=== PATIENT | female | born 1950 | race Caucasian/White ===

== ENCOUNTER 2016-06-23 13:22 | Emergency (ER) | payer MEDICARE, MEDICAID ==
--- NOTE | 2016-06-23 14:07 | REP ---
LEFT ANKLE: Four views. HISTORY: Trauma. FINDINGS: Four views of the left ankle show plantar calcaneal spurring. An old accessory ossicle is seen adjacent to the medial malleolus unchanged from the February 20, 2016 prior study. Ankle mortise is intact. No fractures seen. IMPRESSION: No fracture noted. No change from February 20, 2016. Plantar heel spur. Old accessory ossicle at the medial malleolus. Signed by Hernan Griggs MD 06/23/2016 02:30 P
--- NOTE | 2016-06-23 14:08 | REP ---
SOFT-TISSUE NECK X-RAY: Three views. HISTORY: Foreign body Comparison cervical spine radiographs November 09, 2006. FINDINGS: A ventriculoperitoneal shunt catheter is seen. There is degenerative disc disease at C4-5 C5-6 and C6-7 radiographically more pronounced than on the 2007 prior study. Epiglottis and aryepiglottic folds are normal in appearance. Retropharyngeal soft tissues are not swollen. No opaque foreign body is seen. The glottic and subglottic airway is unremarkable. IMPRESSION: Ventriculoperitoneal shunt catheter noted. No evidence of opaque foreign body. Degenerative disc disease in the cervical spine. Signed by Hernan Griggs MD 06/23/2016 02:30 P
--- NOTE | 2016-06-23 15:14 | EDDOCDS ---
Nurse's Notes [facility] Name: Lina Michaels Age: 65 yrs Sex: Female : 1950 Arrival Date: 06/23/2016 Time: 13:22 Bed I2 / M2 Private MD: Diana Crocker Diagnosis: Sprain of ankle-Left;Calcaneal spur, left foot;Superficial foreign body of throat-Choked on Huertas;Other specified arthritis, unspecified site-Degenerative Disc Disease of C-spine on soft tissue of neck x-ray Presentation: 06/23 13:25 Presenting complaint: EMS states: C resident on a home visit. Family states that she jo3 choked on a piece of huertas approximately 20 minutes prior to EMS arrival . EMS cleared pt on scene but [facility] wanted her transported. Adult Sepsis Screening: The patient does not have new or worsening altered mentation. Suicide/Homicide risk assessment- the patient denies having any suicidal and/or homicidal ideations and does not present with any other emotional, behavioral or mental health complaints. 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 Transition of care: patient was not received from another setting of care. 13:25 Acuity: CARLOS Level 4 jo3 13:25 Method Of Arrival: Ambulance jo3 13:25 Adult Sepsis Screening: Systolic blood pressure is greater than 100. Patient has a jo3 qSOFA score of 0- Negative Sepsis Screen. Triage Assessment: 13:35 General: Appears in no apparent distress, comfortable, Behavior is appropriate for age, jo3 cooperative, pleasant. General: Pt states that she does ot have any throat discomfort . Neurological: Level of Consciousness is awake, alert, Oriented to person. Cardiovascular: No deficits noted. Respiratory: Airway is patent Respiratory effort is even, unlabored, Breath sounds are clear bilaterally. Derm: Skin is pink, warm & dry. Historical: - Allergies: no known allergies; - Home Meds: 1. bupropion HCl 300 mg Oral Tb24 1 tab once daily 2. Calcium + Vitamin D 600 mg calcium- 200 unit Oral tab 3. Claritin 10 mg Oral tab 4. Colace 100 mg oral cap 1 cap once daily 5. Lasix 20 mg Oral tab 1 tab once daily 6. multivitamin Oral cap 7. Prozac 20 mg Oral cap 3 caps once daily 8. Risperdal 3 mg Oral tab 1 tab 2 times per day 9. omeprazole 20 mg oral TbEC 20 mg daily 10. naproxen 500 mg Oral tab 1 tab 2 times per day - PMHx: Diverticulitis; dysphagia; GERD; intellectual disabilities; Depression; - PSHx: Mastectomy- Left; - Social history: Smoking status: Patient states was never smoker of tobacco. No barriers to communication noted, The patient speaks fluent Ukrainian, Speaks appropriately for age. - Family history: Not pertinent. - : The pt / caregiver states he / she is not on anticoagulants. Home medication list is obtained from the facility JUL. - Exposure Risk Screening:: None identified. Screenin:11 Screening information is obtained from residence staff. Screening information is jo3 obtained from the patient. Fall risk: No risks identified. Assistance ADL's: Requires assistance with meal preparation, this assistance is provided by residence staff, bathing, assistance is provided by residence staff, medication administration, assistance is provided by residence staff. Abuse/DV Screen: The patient / caregiver reports he/she is: not in a situation that causes fear, pain or injury. Nutritional screening: No deficits noted. Advance Directives: There is no active DNR order. home support is adequate. Assessment: 13:25 General: see triage assessment . jo3 14:20 General: Appears in no apparent distress, comfortable, Behavior is appropriate for age, jo3 cooperative. General: Awaiting results at this time. Aware of plan of care . Neurological: Level of Consciousness is awake, alert, Oriented to person. Respiratory: Airway is patent Respiratory effort is even, unlabored. Derm: Skin is pink, warm & dry. 15:11 General: Appears in no apparent distress, comfortable, Behavior is appropriate for age, jo3 cooperative, pleasant. Neurological: No deficits noted. Level of Consciousness is awake, alert, Oriented to person. Respiratory: Airway is patent Respiratory effort is even, unlabored. Derm: Skin is pink, warm & dry. Vital Signs: 13:27 BP 158 / 71; Pulse 86; Resp 18; Temp 97.8; Pulse Ox 96% ; jam1 14:55 Weight 64 kg; Height 5 ft. 6 in. (167.64 cm); jo3 14:58 BP 134 / 69; Pulse 70; Resp 18; Temp 98.0; Pulse Ox 96% ; jam1 14:55 Body Mass Index 22.77 (64.00 kg, 167.64 cm) jo3 Vitals: 14:55 Log In Time N/A - ambulance arrival. jo3 ED Course: 13:23 Patient visited by Shira Marie PCA. ar3 13:23 Diana Crocker is Private Physician. ar3 13:23 Patient moved to Waiting ar3 13:23 Patient moved to I2 / M2 ar3 13:25 [facility] ef1 13:25 Vania Montoya MD is Attending Physician. ef1 13:27 Triage Initiated jo3 13:31 Patient visited by Marlin Arrington PA-C. ef1 13:31 Patient visited by Irene Downey RN. jo3 13:36 Patient visited by Irene Downey RN. jo3 14:17 Patient visited by Marlin Arrington PA-C. ef1 14:18 [place] Payment Agreement was scanned into [employer] and attached to record. mm15 14:43 Ankle, Complete Returned. EDMS 14:43 Soft Tissue Neck Returned. EDMS 14:53 Patient visited by Marlin Arrington PA-C. ef1 14:56 Diana Crocker is Referral Physician. ef1 14:[facility]. ef1 15:11 The patient / caregiver is instructed regarding the plan of care and ED course. jo3 15:11 No IV's were initiated during this patient's visit. No procedures done that require jo3 assistance. 15:13 Air stirrup applied to left ankle Patient with positive distal sensation and brisk jo3 distal capillary refill after application. Order Results: Radiology Order: Soft Tissue Neck Test: Soft Tissue Neck REASON FOR EXAMINATION: Foreign Body; SOFT-TISSUE NECK X-RAY: Three views.; ; HISTORY: Foreign body; ; Comparison cervical spine radiographs November 09, 2006.; ; FINDINGS: A ventriculoperitoneal shunt catheter is seen. There is degenerative; disc disease at C4-5 C5-6 and C6-7 radiographically more pronounced than on the2006 prior study. Epiglottis and aryepiglottic folds are normal in appearance.; Retropharyngeal soft tissues are not swollen. No opaque foreign body is seen.; The glottic and subglottic airway is unremarkable.; ; IMPRESSION:; ; Ventriculoperitoneal shunt catheter noted. No evidence of opaque foreign body.; Degenerative disc disease in the cervical spine.; ; ; Signed by; Hernan Griggs MD 06/23/2016 02:30 P; Radiology Order: Ankle, Complete Test: Ankle, Complete REASON FOR EXAMINATION: Trauma; LEFT ANKLE: Four views.; ; HISTORY: Trauma.; ; FINDINGS: Four views of the left ankle show plantar calcaneal spurring. An old; accessory ossicle is seen adjacent to the medial malleolus unchanged from the; February 20, 2016 prior study. Ankle mortise is intact. No fractures seen.; ; IMPRESSION:; ; No fracture noted. No change from February 20, 2016. Plantar heel spur. Old; accessory ossicle at the medial malleolus.; ; ; Signed by; Hernan Griggs MD 06/23/2016 02:30 P; Outcome: 14:56 Discharge ordered by Provider. ef1 15:11 Discharge Assessment: Patient awake, alert and oriented x 3. No cognitive and/or jo3 functional deficits noted. Patient verbalized understanding of disposition instructions. patient administered narcotics - no. The following High Risk Discharge criteria are identified: None. Discharged to [facility]. Condition: good. No special radiology studies were completed. Property sent home with patient. 15:13 Patient left the ED. jo3 Signatures: Dispatcher [employer] EDMS Gege Reagan, DIRECTOR MULTIMEDIA DIRECTOR MULTIMEDIA jam1 Irene Downey RN RN jo3 Marlin Arrington, PADeondreC PA-C ef1 Shira Marie, DIRECTOR MULTIMEDIA DIRECTOR MULTIMEDIA ar3 Soledad Parsons RN RN pml McGrath, Marlynn mm15 Corrections: (The following items were deleted from the chart) 14:55 13:29 Allergies: no known allergies; jo3 pml 14:55 13:29 Home Meds: trazodone 50 mg Oral tab nightly; jo3 pml 14:55 13:29 Home Meds: Zantac 150 mg Oral tab 1 tab 2 times per day; jo3 pml MTDD
--- NOTE | 2016-06-23 15:14 | EDDOCDS ---
Physician Documentation [facility] Name: Lina Michaels Age: 65 yrs Sex: Female : 1950 Arrival Date: 06/23/2016 Time: 13:22 Bed I2 / M2 Private MD: Diana Crocker Disposition: 06/23/16 14:56 Discharged to Home/Self Care. Impression: Sprain of ankle - Left, Calcaneal spur, left foot, Superficial foreign body of throat - Choked on Huertas, Other specified arthritis, unspecified site - Degenerative Disc Disease of C-spine on soft tissue of neck x-ray. - Condition is Stable. - Discharge Instructions: Heel Spur, Ankle Sprain, [id number], Swallowed Foreign Body, Adult, [id number], Degenerative Disk Disease. - Medication Reconciliation, Local Pharmacy Hours form. - Follow up: Diana Crocker; When: 1 - 2 days; Reason: Recheck today's complaints, Continuance of care. Follow up: Emergency Department; Reason: Worsening of conditions. Follow up: [facility]; When: Call to arrange an appointment; Reason: Further diagnostic work-up, Recheck today's complaints, Continuance of care. - Problem is new. - Symptoms have improved. Historical: - Allergies: no known allergies; - Home Meds: 1. bupropion HCl 300 mg Oral Tb24 1 tab once daily 2. Calcium + Vitamin D 600 mg calcium- 200 unit Oral tab 3. Claritin 10 mg Oral tab 4. Colace 100 mg oral cap 1 cap once daily 5. Lasix 20 mg Oral tab 1 tab once daily 6. multivitamin Oral cap 7. Prozac 20 mg Oral cap 3 caps once daily 8. Risperdal 3 mg Oral tab 1 tab 2 times per day 9. omeprazole 20 mg oral TbEC 20 mg daily 10. naproxen 500 mg Oral tab 1 tab 2 times per day - PMHx: Diverticulitis; dysphagia; GERD; intellectual disabilities; Depression; - PSHx: Mastectomy- Left; - Social history: Smoking status: Patient states was never smoker of tobacco. No barriers to communication noted, The patient speaks fluent Greenlandic, Speaks appropriately for age. - Family history: Not pertinent. - : The pt / caregiver states he / she is not on anticoagulants. Home medication list is obtained from the facility MAR. - Exposure Risk Screening:: None identified. Vital Signs: 06/23 13:27 BP 158 / 71; Pulse 86; Resp 18; Temp 97.8; Pulse Ox 96% ; jam1 14:55 Weight 64 kg / 141.1 lbs; Height 5 ft. 6 in. (167.64 cm); jo3 14:58 BP 134 / 69; Pulse 70; Resp 18; Temp 98.0; Pulse Ox 96% ; jam1 14:55 Body Mass Index 22.77 (64.00 kg, 167.64 cm) jo3 Procedures: 15:08 Fracture care/splinting: Splint applied to left lateral ankle using Air Cast, applied ef1 by nurse. Examined by me, post splint application: neurovascular intact, 2+ distal pulses palpable, brisk capillary refill noted, Patient tolerated well. MDM: 13:26 Soft Tissue Neck Ordered. EDMS 13:46 Ankle, Complete Ordered. EDMS 14:02 Financial registration complete. mm15 14:18 [facility] Payment Agreement was scanned into [employer] and attached to record. mm15 14:53 Apply Air Cast to Patient. ordered. ef1 14:58 Ice Pack ordered. ef1 Signatures: Dispatcher [employer] EDMS Irene Downey RN RN jo3 Marlin Arrington, EJ PAGAN ef1 Soledad Parsons RN RN pml McGrath, Marlynn mm15 The chart was reviewed and I authenticate all verbal orders and agree with the evaluation and treatment provided.Corrections: (The following items were deleted from the chart) 14:55 13:29 Allergies: no known allergies; jo3 pml 14:55 13:29 Home Meds: trazodone 50 mg Oral tab nightly; jo3 pml 14:55 13:29 Home Meds: Zantac 150 mg Oral tab 1 tab 2 times per day; jo3 pml Attachments: 14:18 [place] [place] Agreement mm15 MTDD
--- NOTE | 2016-06-25 16:14 | EDDOCDS ---
Physician Documentation [facility] Name: Lina Michaels Age: 65 yrs Sex: Female : 1950 Arrival Date: 06/23/2016 Time: 13:22 Bed I2 / M2 Private MD: Diana Crocker Disposition: 06/23/16 14:56 Discharged to Home/Self Care. Impression: Sprain of ankle - Left, Calcaneal spur, left foot, Superficial foreign body of throat - Choked on Huertas, Other specified arthritis, unspecified site - Degenerative Disc Disease of C-spine on soft tissue of neck x-ray. - Condition is Stable. - Discharge Instructions: Heel Spur, Ankle Sprain, [id number]-[id number], Swallowed Foreign Body, Adult, Lopy-ey-Naeo, Degenerative Disk Disease. - Medication Reconciliation, Local Pharmacy Hours form. - Follow up: Diana Crocker; When: 1 - 2 days; Reason: Recheck today's complaints, Continuance of care. Follow up: Emergency Department; Reason: Worsening of conditions. Follow up: [facility]; When: Call to arrange an appointment; Reason: Further diagnostic work-up, Recheck today's complaints, Continuance of care. - Problem is new. - Symptoms have improved. Historical: - Allergies: no known allergies; - Home Meds: 1. bupropion HCl 300 mg Oral Tb24 1 tab once daily 2. Calcium + Vitamin D 600 mg calcium- 200 unit Oral tab 3. Claritin 10 mg Oral tab 4. Colace 100 mg oral cap 1 cap once daily 5. Lasix 20 mg Oral tab 1 tab once daily 6. multivitamin Oral cap 7. Prozac 20 mg Oral cap 3 caps once daily 8. Risperdal 3 mg Oral tab 1 tab 2 times per day 9. omeprazole 20 mg oral TbEC 20 mg daily 10. naproxen 500 mg Oral tab 1 tab 2 times per day - PMHx: Diverticulitis; dysphagia; GERD; intellectual disabilities; Depression; - PSHx: Mastectomy- Left; - Social history: Smoking status: Patient states was never smoker of tobacco. No barriers to communication noted, The patient speaks fluent Divehi, Speaks appropriately for age. - Family history: Not pertinent. - : The pt / caregiver states he / she is not on anticoagulants. Home medication list is obtained from the facility MAR. - Exposure Risk Screening:: None identified. Vital Signs: 06/23 13:27 BP 158 / 71; Pulse 86; Resp 18; Temp 97.8; Pulse Ox 96% ; jam1 14:55 Weight 64 kg / 141.1 lbs; Height 5 ft. 6 in. (167.64 cm); jo3 14:58 BP 134 / 69; Pulse 70; Resp 18; Temp 98.0; Pulse Ox 96% ; jam1 14:55 Body Mass Index 22.77 (64.00 kg, 167.64 cm) jo3 Procedures: 15:08 Fracture care/splinting: Splint applied to left lateral ankle using Air Cast, applied ef1 by nurse. Examined by me, post splint application: neurovascular intact, 2+ distal pulses palpable, brisk capillary refill noted, Patient tolerated well. MDM: 13:26 Soft Tissue Neck Ordered. EDMS 13:46 Ankle, Complete Ordered. EDMS 14:02 Financial registration complete. mm15 14:18 [place] [place] Payment Agreement was scanned into [employer] and attached to record. mm15 14:53 Apply Air Cast to Patient. ordered. ef1 14:58 Ice Pack ordered. ef1 22:01 T-Sheet-- Draft Copy was scanned into [employer] and attached to record. klr 06/24 10:41 Radiology Report was scanned into [employer] and attached to record. gb Signatures: Dispatcher [employer] EDIN Marnie Addison, Reg Reg Irene Hinds RN RN jo3 Marlin Arrington, PA-C PA-C ef1 Soledad Parsons RN RN pml McGrath, Marlynn mm15 Anna Calderon klmaribeth The chart was reviewed and I authenticate all verbal orders and agree with the evaluation and treatment provided.Corrections: (The following items were deleted from the chart) 06/23 14:55 13:29 Allergies: no known allergies; jo3 pml 14:55 13:29 Home Meds: trazodone 50 mg Oral tab nightly; jo3 pml 14:55 13:29 Home Meds: Zantac 150 mg Oral tab 1 tab 2 times per day; jo3 pml Attachments: 14:18 [facility] [place] Payment Agreement mm15 22:01 T-Sheet-- Draft Copy klr Chart Complete MTDD
--- NOTE | 2016-06-25 16:14 | EDDOCDS ---
Nurse's Notes [facility] Name: Lina Michaels Age: 65 yrs Sex: Female : 1950 Arrival Date: 06/23/2016 Time: 13:22 Bed I2 / M2 Private MD: Diana Crocker Diagnosis: Sprain of ankle-Left;Calcaneal spur, left foot;Superficial foreign body of throat-Choked on Huertas;Other specified arthritis, unspecified site-Degenerative Disc Disease of C-spine on soft tissue of neck x-ray Presentation: 06/23 13:25 Presenting complaint: EMS states: C resident on a home visit. Family states that she jo3 choked on a piece of huertas approximately 20 minutes prior to EMS arrival . EMS cleared pt on scene but [facility] wanted her transported. Adult Sepsis Screening: The patient does not have new or worsening altered mentation. Suicide/Homicide risk assessment- the patient denies having any suicidal and/or homicidal ideations and does not present with any other emotional, behavioral or mental health complaints. Status: Patient is not a client service supervisor or dependent. Transition of care: patient was not received from another setting of care. 13:25 Acuity: CARLOS Level 4 jo3 13:25 Method Of Arrival: Ambulance jo3 13:25 Adult Sepsis Screening: Systolic blood pressure is greater than 100. Patient has a jo3 qSOFA score of 0- Negative Sepsis Screen. Triage Assessment: 13:35 General: Appears in no apparent distress, comfortable, Behavior is appropriate for age, jo3 cooperative, pleasant. General: Pt states that she does ot have any throat discomfort . Neurological: Level of Consciousness is awake, alert, Oriented to person. Cardiovascular: No deficits noted. Respiratory: Airway is patent Respiratory effort is even, unlabored, Breath sounds are clear bilaterally. Derm: Skin is pink, warm & dry. Historical: - Allergies: no known allergies; - Home Meds: 1. bupropion HCl 300 mg Oral Tb24 1 tab once daily 2. Calcium + Vitamin D 600 mg calcium- 200 unit Oral tab 3. Claritin 10 mg Oral tab 4. Colace 100 mg oral cap 1 cap once daily 5. Lasix 20 mg Oral tab 1 tab once daily 6. multivitamin Oral cap 7. Prozac 20 mg Oral cap 3 caps once daily 8. Risperdal 3 mg Oral tab 1 tab 2 times per day 9. omeprazole 20 mg oral TbEC 20 mg daily 10. naproxen 500 mg Oral tab 1 tab 2 times per day - PMHx: Diverticulitis; dysphagia; GERD; intellectual disabilities; Depression; - PSHx: Mastectomy- Left; - Social history: Smoking status: Patient states was never smoker of tobacco. No barriers to communication noted, The patient speaks fluent Pashto, Speaks appropriately for age. - Family history: Not pertinent. - : The pt / caregiver states he / she is not on anticoagulants. Home medication list is obtained from the facility JUL. - Exposure Risk Screening:: None identified. Screenin:11 Screening information is obtained from residence staff. Screening information is jo3 obtained from the patient. Fall risk: No risks identified. Assistance ADL's: Requires assistance with meal preparation, this assistance is provided by residence staff, bathing, assistance is provided by residence staff, medication administration, assistance is provided by residence staff. Abuse/DV Screen: The patient / caregiver reports he/she is: not in a situation that causes fear, pain or injury. Nutritional screening: No deficits noted. Advance Directives: There is no active DNR order. home support is adequate. Assessment: 13:25 General: see triage assessment . jo3 14:20 General: Appears in no apparent distress, comfortable, Behavior is appropriate for age, jo3 cooperative. General: Awaiting results at this time. Aware of plan of care . Neurological: Level of Consciousness is awake, alert, Oriented to person. Respiratory: Airway is patent Respiratory effort is even, unlabored. Derm: Skin is pink, warm & dry. 15:11 General: Appears in no apparent distress, comfortable, Behavior is appropriate for age, jo3 cooperative, pleasant. Neurological: No deficits noted. Level of Consciousness is awake, alert, Oriented to person. Respiratory: Airway is patent Respiratory effort is even, unlabored. Derm: Skin is pink, warm & dry. Vital Signs: 13:27 BP 158 / 71; Pulse 86; Resp 18; Temp 97.8; Pulse Ox 96% ; jam1 14:55 Weight 64 kg; Height 5 ft. 6 in. (167.64 cm); jo3 14:58 BP 134 / 69; Pulse 70; Resp 18; Temp 98.0; Pulse Ox 96% ; jam1 14:55 Body Mass Index 22.77 (64.00 kg, 167.64 cm) jo3 Vitals: 14:55 Log In Time N/A - ambulance arrival. jo3 ED Course: 13:23 Patient visited by Shira Marie PCA. ar3 13:23 Diana Crocker is Private Physician. ar3 13:23 Patient moved to Waiting ar3 13:23 Patient moved to I2 / M2 ar3 13:25 Marlin Arrington PA-C is [facility]. ef1 13:25 Vania Montoya MD is Attending Physician. ef1 13:27 Triage Initiated jo3 13:31 Patient visited by Marlin Arrington PA-C. ef1 13:31 Patient visited by Irene Downey,SHARMIN. jo3 13:36 Patient visited by Irene Downey RN. jo3 14:17 Patient visited by Marlin Arrington PA-C. ef1 14:18 [id number] Payment Agreement was scanned into [employer] and attached to record. mm15 14:43 Ankle, Complete Returned. EDMS 14:43 Soft Tissue Neck Returned. EDMS 14:53 Patient visited by Marlin Arrington PA-C. ef1 14:56 Diana Crocker is Referral Physician. ef1 14:56 [facility]. ef1 15:11 The patient / caregiver is instructed regarding the plan of care and ED course. jo3 15:11 No IV's were initiated during this patient's visit. No procedures done that require jo3 assistance. 15:13 Air stirrup applied to left ankle Patient with positive distal sensation and brisk jo3 distal capillary refill after application. 22:01 T-Sheet-- Draft Copy was scanned into [employer] and attached to record. klr 06/24 10:41 Radiology Report was scanned into [employer] and attached to record. gb Order Results: Radiology Order: Soft Tissue Neck Test: Soft Tissue Neck REASON FOR EXAMINATION: Foreign Body; SOFT-TISSUE NECK X-RAY: Three views.; ; HISTORY: Foreign body; ; Comparison cervical spine radiographs November 09, 2006.; ; FINDINGS: A ventriculoperitoneal shunt catheter is seen. There is degenerative; disc disease at C4-5 C5-6 and C6-7 radiographically more pronounced than on the2006 prior study. Epiglottis and aryepiglottic folds are normal in appearance.; Retropharyngeal soft tissues are not swollen. No opaque foreign body is seen.; The glottic and subglottic airway is unremarkable.; ; IMPRESSION:; ; Ventriculoperitoneal shunt catheter noted. No evidence of opaque foreign body.; Degenerative disc disease in the cervical spine.; ; ; Signed by; Hernan Griggs MD 06/23/2016 02:30 P; Radiology Order: Ankle, Complete Test: Ankle, Complete REASON FOR EXAMINATION: Trauma; LEFT ANKLE: Four views.; ; HISTORY: Trauma.; ; FINDINGS: Four views of the left ankle show plantar calcaneal spurring. An old; accessory ossicle is seen adjacent to the medial malleolus unchanged from the; February 20, 2016 prior study. Ankle mortise is intact. No fractures seen.; ; IMPRESSION:; ; No fracture noted. No change from February 20, 2016. Plantar heel spur. Old; accessory ossicle at the medial malleolus.; ; ; Signed by; Hernan Griggs MD 06/23/2016 02:30 P; Outcome: 06/23 14:56 Discharge ordered by Provider. ef1 15:11 Discharge Assessment: Patient awake, alert and oriented x 3. No cognitive and/or jo3 functional deficits noted. Patient verbalized understanding of disposition instructions. patient administered narcotics - no. The following High Risk Discharge criteria are identified: None. Discharged to [facility]. Condition: good. No special radiology studies were completed. Property sent home with patient. 15:13 Patient left the ED. jo3 Signatures: Dispatcher [employer] EDMS Gege Reagan, LMFT LMFT tomas1 Marnie Addison, Reg Reg Irene Hinds RN RN jo3 Marlin Arrington, PA-C PA-C ef1 Shira Marie, LMFT LMFT ar3 Soledad Parsons RN RN Luiz Li mm15 Anna Calderon Corrections: (The following items were deleted from the chart) 14:55 13:29 Allergies: no known allergies; jo3 pml 14:55 13:29 Home Meds: trazodone 50 mg Oral tab nightly; jo3 pml 14:55 13:29 Home Meds: Zantac 150 mg Oral tab 1 tab 2 times per day; jo3 pml Chart Complete MTDD
--- NOTE | 2016-06-25 16:14 | EDDOCDS ---
Physician Documentation [facility] Name: Lina Michaels Age: 65 yrs Sex: Female : 1950 Arrival Date: 06/23/2016 Time: 13:22 Bed I2 / M2 Private MD: Diana Crocker Disposition: 06/23/16 14:56 Discharged to Home/Self Care. Impression: Sprain of ankle - Left, Calcaneal spur, left foot, Superficial foreign body of throat - Choked on Huertas, Other specified arthritis, unspecified site - Degenerative Disc Disease of C-spine on soft tissue of neck x-ray. - Condition is Stable. - Discharge Instructions: Heel Spur, Ankle Sprain, [id number], Swallowed Foreign Body, Adult, Acfp-to-Bbfz, Degenerative Disk Disease. - Medication Reconciliation, Local Pharmacy Hours form. - Follow up: Diana Crocker; When: 1 - 2 days; Reason: Recheck today's complaints, Continuance of care. Follow up: Emergency Department; Reason: Worsening of conditions. Follow up: [facility]; When: Call to arrange an appointment; Reason: Further diagnostic work-up, Recheck today's complaints, Continuance of care. - Problem is new. - Symptoms have improved. Historical: - Allergies: no known allergies; - Home Meds: 1. bupropion HCl 300 mg Oral Tb24 1 tab once daily 2. Calcium + Vitamin D 600 mg calcium- 200 unit Oral tab 3. Claritin 10 mg Oral tab 4. Colace 100 mg oral cap 1 cap once daily 5. Lasix 20 mg Oral tab 1 tab once daily 6. multivitamin Oral cap 7. Prozac 20 mg Oral cap 3 caps once daily 8. Risperdal 3 mg Oral tab 1 tab 2 times per day 9. omeprazole 20 mg oral TbEC 20 mg daily 10. naproxen 500 mg Oral tab 1 tab 2 times per day - PMHx: Diverticulitis; dysphagia; GERD; intellectual disabilities; Depression; - PSHx: Mastectomy- Left; - Social history: Smoking status: Patient states was never smoker of tobacco. No barriers to communication noted, The patient speaks fluent Hebrew, Speaks appropriately for age. - Family history: Not pertinent. - : The pt / caregiver states he / she is not on anticoagulants. Home medication list is obtained from the facility MAR. - Exposure Risk Screening:: None identified. Vital Signs: 06/23 13:27 BP 158 / 71; Pulse 86; Resp 18; Temp 97.8; Pulse Ox 96% ; jam1 14:55 Weight 64 kg / 141.1 lbs; Height 5 ft. 6 in. (167.64 cm); jo3 14:58 BP 134 / 69; Pulse 70; Resp 18; Temp 98.0; Pulse Ox 96% ; jam1 14:55 Body Mass Index 22.77 (64.00 kg, 167.64 cm) jo3 Procedures: 15:08 Fracture care/splinting: Splint applied to left lateral ankle using Air Cast, applied ef1 by nurse. Examined by me, post splint application: neurovascular intact, 2+ distal pulses palpable, brisk capillary refill noted, Patient tolerated well. MDM: 13:26 Soft Tissue Neck Ordered. EDMS 13:46 Ankle, Complete Ordered. EDMS 14:02 Financial registration complete. mm15 14:18 [facility] [place] Agreement was scanned into [employer] and attached to record. mm15 14:53 Apply Air Cast to Patient. ordered. ef1 14:58 Ice Pack ordered. ef1 22:01 T-Sheet-- Draft Copy was scanned into [employer] and attached to record. klr 06/24 10:41 Radiology Report was scanned into [employer] and attached to record. gb Signatures: Dispatcher [employer] EDHI Marnie Addison, Reg Reg Irene Hinds RN RN jo3 Marlin Arrington, PA-C PA-C ef1 Soledad Parsons RN RN pml McGrath, Marlynn mm15 Anna Calderon [email or web address] The chart was reviewed and I authenticate all verbal orders and agree with the evaluation and treatment provided.Corrections: (The following items were deleted from the chart) 06/23 14:55 13:29 Allergies: no known allergies; jo3 pml 14:55 13:29 Home Meds: trazodone 50 mg Oral tab nightly; jo3 pml 14:55 13:29 Home Meds: Zantac 150 mg Oral tab 1 tab 2 times per day; jo3 pml Attachments: 14:18 [facility] Payment Agreement mm15 22:01 T-Sheet-- Draft Copy klr Chart Complete MTDD
== END 2016-06-23 15:13 | disposition home or self-care (01) ==
LOC: M ED 13:22
DX: S93.402A Sprain of unspecified ligament of left ankle, initial encounter (principal); T18.108A Unspecified foreign body in esophagus causing other injury, initial encounter; X58.XXXA Exposure to other specified factors, initial encounter; Y92.019 Unspecified place in single-family (private) house as the place of occurrence of the external cause; Y93.89 Activity, other specified; Y99.8 Other external cause status; M77.32 Calcaneal spur, left foot; M50.321 Other cervical disc degeneration at C4-C5 level; M50.322 Other cervical disc degeneration at C5-C6 level; M50.323 Other cervical disc degeneration at C6-C7 level; R07.0 Pain in throat; F79 Unspecified intellectual disabilities; K57.80 Diverticulitis of intestine, part unspecified, with perforation and abscess without bleeding; K21.9 Gastro-esophageal reflux disease without esophagitis; F32.9 Major depressive disorder, single episode, unspecified; R13.10 Dysphagia, unspecified; Z90.12 Acquired absence of left breast and nipple; Z79.1 Long term (current) use of non-steroidal anti-inflammatories (NSAID); Z79.899 Other long term (current) drug therapy

== ENCOUNTER → 2016-08-01 | Outpatient (CLI) | payer MEDICARE, MEDICAID ==
--- NOTE | 2016-08-01 11:15 | REP ---
CT BRAIN WITHOUT CONTRAST: 08/01/2016 COMPARISON: 01/08/2016, 03/07/2015. CLINICAL HISTORY: Hydrocephalus. Status post MIRROR DEPARTMENT SUPERVISOR shunt placement. FINDINGS: Soft tissue and bone windows reviewed again show ventriculomegaly with bifrontal diameter about 46 mm between the lateral margins of the frontal horns at the same measured level on the two comparison studies, unchanged. There is a right frontal ventriculostomy drain with its tip extending to the midline of the frontal horn of the right lateral ventricle. All of this appearance is stable. Third ventricle shows a transverse diameter 10 mm, but with parallel soriano and unchanged. Fourth ventricle mildly prominent as well, stable. Basal ganglia are symmetric. Celestin-white junction differentiation well maintained. No midline shift. No intra- or extra-axial hemorrhage, mass, or extra-axial fluid collection. The cerebellum and brainstem unchanged with hossein cisterna magna appearance, stable. Basal cisterns intact. Mastoids and visualized sinuses clear. Skull base and calvarium show no fracture, focal lesion, or interval change. IMPRESSION: 1. Hydrocephalus with right frontal ventriculoperitoneal drain with the shunt catheter abutting the medial wall of the right lateral ventricle and the frontal horn and unchanged. The transverse diameter of the frontal horns bilaterally is 46 mm, unchanged from two previous comparisons. There is mild cerebellar atrophy but no extra-axial fluid collection, hemorrhage, mass or acute infarct. Stable examination. Signed by Rehan Brooke MD 08/01/2016 06:37 P
== END ==
LOC: M RAD 10:23
PROVIDERS: ATTEND Neurological Surgery
DX: G91.9 Hydrocephalus, unspecified (principal); Z98.2 Presence of cerebrospinal fluid drainage device

== ENCOUNTER → 2016-12-19 | Outpatient (CLI) | payer MEDICARE, MEDICAID ==
--- NOTE | 2016-12-19 16:52 | REPMRS ---
Patient History The patient states she had a clinical breast exam in 01/03 Patient is postmenopausal, has history of cancer in the left breast at age 53, and is nulliparous. Malignant mastectomy of the left breast, 2005. Digital Woman Screen Mammo: December 19, 2016 - Exam #: [id number] Bilateral CC and MLO view(s) were taken. Technologist: Kaci Kingston, Technologist Prior study comparison: November 29, 2015, digital woman screen mammo performed at [facility]. October 28, 2014, digital woman screen mammo performed at [facility]. FINDINGS: There are scattered fibroglandular densities. There has been no change in the appearance of the right mammogram from the prior studies. There is a mild amount of residual fibroglandular tissue which is fairly symmetric. Prior left mastectomy. There is no interval development of dominant mass, architectural distortion, or clustered microcalcification suggestive of malignancy. There are scattered, small, benign calcifications of doubtful clinical significance. A CHAPLAIN RESIDENT shunt catheter overlies medial right breast as before. No significant changes when compared with prior studies. ASSESSMENT: BI-RADS/ACR category 2 mammogram. Benign finding(s). Recommendation Routine screening mammogram in 1 year (for women over age 40). This mammogram was interpreted with the aid of an FDA-approved computer-aided dectection system. A. Negative x-ray reports should not delay biopsy if a dominant or clinically suspicious mass is present. B. Four to eight percent of cancers are not identified by mammography. C. Adenosis and dense breast may obscure an underlying neoplasm. Electronically Signed By: Rehan Brooke MD 12/19/16 0154
== END ==
LOC: M WHC 14:15
PROVIDERS: ATTEND Nurse Practitioner Family
DX: Z01.419 Encounter for gynecological examination (general) (routine) without abnormal findings (principal); Z12.31 Encounter for screening mammogram for malignant neoplasm of breast; Z90.12 Acquired absence of left breast and nipple; Z78.0 Asymptomatic menopausal state; Z12.12 Encounter for screening for malignant neoplasm of rectum; Z85.3 Personal history of malignant neoplasm of breast; Z96.89 Presence of other specified functional implants
CPT/HCPCS: 82270; G0101; G0202

== ENCOUNTER → 2017-07-12 | Outpatient (REF) | payer MEDICARE, MEDICAID | LOC: M LAB REF 09:16 | DX: R30.0 Dysuria (principal) | CPT/HCPCS: 87186 ==

== ENCOUNTER → 2017-12-23 | Outpatient (CLI) | payer MEDICARE, MEDICAID | LOC: M WHC 12:52 | DX: Z12.31 Encounter for screening mammogram for malignant neoplasm of breast (principal) | CPT/HCPCS: 77067 ==

== ENCOUNTER → 2019-04-29 | Outpatient (CLI) | payer MEDICARE, MEDICAID ==
--- NOTE | 2019-04-29 10:59 | REP ---
UNILATERAL MAMMOGRAM RIGHT BREAST WITH 3D TOMOSYNTHESIS: HISTORY: Left breast cancer and mastectomy 2004. MLO and CC views of the right breast performed with 3D tomosynthesis. Comparison made with multiple prior exams, most recently 12/23/2017. Moderate scattered fibroglandular tissue is again seen in the right breast. No new mass, architectural distortion or clustered microcalcifications are seen. IMPRESSION: BIRADS 1: BI-RADS/ACR category 1 mammogram. Negative Mammogram. ACR 1 negative mammogram right breast in this patient status post left mastectomy. Suggest followup mammogram in 1 year. This mammogram was interpreted with the aid of an FDA-approved computer-aided detection system. The patient states she has not had a clinical breast exam in over a year. The patient letter being requested is M1.
== END ==
LOC: M WHC 08:14
PROVIDERS: ATTEND Family Medicine
DX: Z12.31 Encounter for screening mammogram for malignant neoplasm of breast (principal)

== ENCOUNTER → 2022-04-25 | Outpatient (REF) | payer MEDICARE, MEDICAID | LOC: M LAB REF 16:46 | PROVIDERS: ATTEND Physician Assistant | DX: R30.0 Dysuria (principal) ==

== ENCOUNTER 2023-01-25 10:47 | Day surgery (SDC) | payer MEDICARE, MEDICAID ==
[~2023-01-25] VITALS: Ht 167.6 cm; Wt 63.0 kg
[~2023-01-25 10:47] MED LIST: ATOR1TAB21 PO; BUPR150T12 PO; CALC-218 PO; CLAR10CA3 PO; DEBR6.5S4 AU; DONE10TA90 PO; ECOT81TA5 PO; FURO20TA2 PO; GOOD8.6T2 PO; NAPR500T6 PO; NS 1,000 ML IV ONE; PANT40TA29 PO; PROZ20CA11 PO; RISP-10 PO
[2023-01-25 12:17] VITALS: TEMP 98.9
[2023-01-25 13:10] VITALS: BP 132/76; O2SAT 94
== END 2023-01-25 13:10 | disposition home or self-care (01) ==
LOC: M SDC 10:47
PROVIDERS: ATTEND Surgery
DX: Z12.11 Encounter for screening for malignant neoplasm of colon (principal); D12.2 Benign neoplasm of ascending colon; Z85.3 Personal history of malignant neoplasm of breast

== ENCOUNTER 2023-09-25 12:21 | Inpatient (IN) | payer MEDICARE, MEDICAID ==
[~2023-09-25] VITALS: Ht 160 cm; Wt 67.7 kg
[~2023-09-25 12:21] MED LIST changes: -NS 1,000 ML IV ONE; -RISP-10 PO; +RISP3TAB77 PO
[2023-09-25] MEDS: LIDOCAINE 2% 5ML JELLY UROJET TOP ONE (13:10)
[2023-09-25 13:35] LABS: BASO % 0.2 % (0.0-1.0); EOS % 0.2 % (0.0-3.0); HEMATOCRIT 38.2 % (36.0-47.0); HEMOGLOBIN 11.7 g/dl (12.0-15.5); LYMPH # 1.1 10^3/uL (1.5-5.0); LYMPH % 12.3 % (24.0-44.0); MEAN CORPUSCULAR HEMOGLOBIN 27.3 pg (27.0-33.0); MEAN CORPUSCULAR HGB CONC 30.6 g/dl (32.0-36.5); MONO # 0.4 10^3/uL (0.0-0.8); MONO % 4.8 % (2.0-8.0); NEUTROPHILS # 7.5 10^3/uL (1.5-8.5); NEUTROPHILS % 82.3 % (36.0-66.0); PLATELET COUNT, AUTOMATED 308 10^3/uL (150-450); RED BLOOD COUNT 4.29 10^6/uL (4.00-5.40); WHITE BLOOD COUNT 9.2 10^3/uL (4.0-10.0)
[2023-09-25 13:53] LABS: VENOUS BASE EXCESS 2.4 (-2.0-2.0); VENOUS HCO3 28.7 MMOL/L (23.0-27.0); VENOUS O2 SATURATION 95.5 % (60.0-80.0); VENOUS PARTIAL PRESSURE CO2 51.5 mmHg (38.0-50.0); VENOUS PARTIAL PRESSURE O2 86.2 mmHg (30.0-50.0); VENOUS PH 7.364 UNITS (7.330-7.430); VENOUS STANDARD HCO3 26.6 MMOL/L; VENOUS TOTAL CO2 30.3 MMOL/L (24.0-28.0)
[2023-09-25 13:59] LABS: ALBUMIN 3.3 G/DL (3.2-5.2); ALKALINE PHOSPHATASE 116 U/L (46-116); ALT/SGPT 20 U/L (7.0-40); AST/SGOT 25 U/L (<34); BILIRUBIN,DIRECT < 0.1 MG/DL (<0.4); BILIRUBIN,TOTAL 0.3 MG/DL (0.3-1.2); BLOOD UREA NITROGEN 16 MG/DL (9-23); CALCIUM LEVEL 8.8 MG/DL (8.3-10.6); CARBON DIOXIDE LEVEL 28 MMOL/L (20-31); CHLORIDE LEVEL 104 MMOL/L (98-107); CREATININE FOR GFR 0.64 MG/DL (0.55-1.30); GLOMERULAR FILTRATION RATE > 60.0 (>39); GLUCOSE, FASTING 102 MG/DL (74-106); POTASSIUM SERUM 4.5 MMOL/L (3.5-5.1); SODIUM LEVEL 140 MMOL/L (136-145); TOTAL PROTEIN 6.9 G/DL (5.7-8.2)
[2023-09-25 14:02] LABS: THYROID STIMULATING HORMONE 1.801 uIU/ML (0.55-4.78)
[2023-09-25 14:13] LABS: CK-MB VALUE MASS < 1.0 NG/ML (<3.6)
[2023-09-25 14:18] LABS: FREE T4 1.03 NG/DL (0.89-1.76)
[2023-09-25 14:26] LABS: C REACTIVE PROTEIN QUANTITATIV < 0.40 MG/DL (<1.0); LIPASE 31 U/L (12-53)
[2023-09-25 14:30] LABS: CPK CREATINE PHOSPHOKINASE 114 U/L (34-145); MB/CK RELATIVE INDEX 0.87 (< OR =4)
[2023-09-25] MEDS: NS 1,000 ML IV ONE ×2 (14:32→18:19)
[2023-09-25 14:49] LABS: PROCALCITONIN <0.04 ng/ml
[2023-09-25] MEDS: ACETAMINOPHEN *IV* 1,000 MG in IV 1 EA IV ONE (15:51)
[2023-09-25 16:05] LABS: CK-MB VALUE MASS < 1.0 NG/ML (<3.6)
[2023-09-25 16:08] LABS: CPK CREATINE PHOSPHOKINASE 67 U/L (34-145); MB/CK RELATIVE INDEX 1.49 (< OR =4)
[2023-09-25] MEDS ORDERED: ISOVUE-370 76% 100ML VIAL As Ordered ONE (17:13)
[2023-09-25] MEDS ORDERED: MOM 30ML SUSPENSION UDC PO PRN (18:20)
[2023-09-25] MEDS ORDERED: MAALOX 30 ML SUSP *UDC PO PRN (18:20)
[2023-09-25 21:39] VITALS: BP 140/60
[2023-09-25] MEDS: **hydrALAZINE** 10 MG TAB PO ONE (21:39)
[2023-09-25] MEDS: NS 1,000 ML IV SCH (21:39)
[2023-09-25] MEDS ORDERED: EFFE75CA2 PO (21:43)
[2023-09-25] MEDS ORDERED: ACET1TAB55 PO (21:43)
[2023-09-25] MEDS ORDERED: OYST500T11 PO (21:43)
[2023-09-25] MEDS ORDERED: IBUP-1764 PO (21:43)
[2023-09-25] MEDS ORDERED: GOOD8.6T2 PO (21:43)
[2023-09-25] MEDS ORDERED: HOME MED LIST COMPLETE! XX SCH (21:50)
[2023-09-25 22:19] VITALS: BP 118/58; TEMP 98.2; O2SAT 96
[2023-09-25] MEDS: PIPERACILLIN/TAZOBACTAM SOD 4.5 GM in D5W MINI-BAG PLUS 50 ML IV SCH (23:14)
[2023-09-26 03:22] VITALS: BP 137/61; TEMP 97.9; O2SAT 95
[2023-09-26 05:50] LABS: BASO % 0.3 % (0.0-1.0); EOS # 0.1 10^3/uL (0.0-0.5); EOS % 2.1 % (0.0-3.0); HEMATOCRIT 33.8 % (36.0-47.0); HEMOGLOBIN 10.6 g/dl (12.0-15.5); LYMPH # 2.1 10^3/uL (1.5-5.0); LYMPH % 35.8 % (24.0-44.0); MEAN CORPUSCULAR HEMOGLOBIN 27.7 pg (27.0-33.0); MEAN CORPUSCULAR HGB CONC 31.4 g/dl (32.0-36.5); MEAN CORPUSCULAR VOLUME 88.3 fl (80.0-96.0); MONO # 0.7 10^3/uL (0.0-0.8); MONO % 11.2 % (2.0-8.0); NEUTROPHILS # 2.9 10^3/uL (1.5-8.5); NEUTROPHILS % 50.4 % (36.0-66.0); PLATELET COUNT, AUTOMATED 251 10^3/uL (150-450); RED BLOOD COUNT 3.83 10^6/uL (4.00-5.40); WHITE BLOOD COUNT 5.8 10^3/uL (4.0-10.0)
[2023-09-26 06:21] LABS: BLOOD UREA NITROGEN 13 MG/DL (9-23); CALCIUM LEVEL 8.3 MG/DL (8.3-10.6); CARBON DIOXIDE LEVEL 28 MMOL/L (20-31); CHLORIDE LEVEL 108 MMOL/L (98-107); CREATININE FOR GFR 0.66 MG/DL (0.55-1.30); GLOMERULAR FILTRATION RATE > 60.0 (>39); GLUCOSE, FASTING 78 MG/DL (74-106); MAGNESIUM LEVEL 1.9 MG/DL (1.8-2.4); POTASSIUM SERUM 3.8 MMOL/L (3.5-5.1); SODIUM LEVEL 142 MMOL/L (136-145)
[2023-09-26 06:31] VITALS: BP 140/64; TEMP 97.8; O2SAT 95
[2023-09-26] MEDS: PANTOPRAZOLE 40MG VIAL IV SCH (08:22)
[2023-09-26] MEDS: VENLAFAXINE **XR** 75MG CAPSULE PO SCH (08:23)
[2023-09-26] MEDS: ENOXAPARIN 40MG/0.4ML SYRINGE (J1650 PER 10MG) SC SCH (08:23)
[2023-09-26] MEDS: ATORVASTATIN 20 MG TAB PO SCH (08:23)
[2023-09-26] MEDS: risperiDONE 3 MG TAB PO SCH (08:23)
[2023-09-26] MEDS: SENOKOT S TAB PO SCH (08:24)
[2023-09-26 12:00] VITALS: BP 126/62; TEMP 97.4; O2SAT 96
[2023-09-26 16:00] VITALS: BP 152/66; TEMP 97.7; O2SAT 97
[2023-09-26] MEDS ORDERED: diphenhydrAMINE CREAM 30GM TOP PRN (18:55)
[2023-09-26 20:29] VITALS: BP 134/63; TEMP 98.1; O2SAT 98
[2023-09-26] MEDS: ACETAMINOPHEN TAB 650MG DOSE (2X325MG) PO PRN (20:35)
[2023-09-26] MEDS: SIMETHICONE 80MG CHEW TAB PO SCH (20:35)
[2023-09-26 23:07] VITALS: BP 130/58; TEMP 98.6; O2SAT 96
[2023-09-27 03:19] VITALS: BP 133/58; TEMP 97.5; O2SAT 98
[2023-09-27 07:26] VITALS: BP 150/64; TEMP 98.1; O2SAT 96
[2023-09-27] MEDS ORDERED: CEFD1CAP9 PO (11:40)
[2023-09-27] MEDS ORDERED: METR-265 PO (11:41)
[2023-09-27] MEDS ORDERED: [UNRECOGNIZED DRUG - OTHER] PO (11:41)
[2023-09-27 12:10] VITALS: BP 128/62; TEMP 97.7; O2SAT 95
[2023-09-27 12:14] VITALS: TEMP 97.9; O2SAT 94
== END 2023-09-27 13:58 | disposition home or self-care (01) | DRG 391 ==
LOC: M ED 12:21 → EDBD 12:21 → M ED INP 18:16 → M PCU 22:11
PROVIDERS: ADMIT Student in an Organized Health Care Education/Training Program; ATTEND Student in an Organized Health Care Education/Training Program
DX: K57.92 Diverticulitis of intestine, part unspecified, without perforation or abscess without bleeding (principal); G93.41 Metabolic encephalopathy; E87.20 Acidosis, unspecified; G91.9 Hydrocephalus, unspecified; A09 Infectious gastroenteritis and colitis, unspecified; I10 Essential (primary) hypertension; E78.5 Hyperlipidemia, unspecified; F79 Unspecified intellectual disabilities; M19.90 Unspecified osteoarthritis, unspecified site; R13.10 Dysphagia, unspecified; Z85.3 Personal history of malignant neoplasm of breast; H52.4 Presbyopia; K21.9 Gastro-esophageal reflux disease without esophagitis; M81.0 Age-related osteoporosis without current pathological fracture; G51.0 Bell's palsy; F41.9 Anxiety disorder, unspecified; F32.A Depression, unspecified; F03.90 Unspecified dementia, unspecified severity, without behavioral disturbance, psychotic disturbance, mood disturbance, and anxiety; Z98.2 Presence of cerebrospinal fluid drainage device; R00.1 Bradycardia, unspecified; K76.0 Fatty (change of) liver, not elsewhere classified; Z79.82 Long term (current) use of aspirin; Z79.899 Other long term (current) drug therapy; Z88.6 Allergy status to analgesic agent; Z90.12 Acquired absence of left breast and nipple

== ENCOUNTER → 2023-11-13 | Outpatient (CLI) | payer MEDICARE, MEDICAID ==
[~2023-11-13] MED LIST changes: +ACET1TAB55 PO; +CEFD1CAP9 PO; +EFFE75CA2 PO; +IBUP-1764 PO; +METR-265 PO; +OYST500T11 PO; +[UNRECOGNIZED DRUG - OTHER] PO
[2023-11-13 10:11] LABS: BASO % 0.1 % (0.0-1.0); EOS % 0.1 % (0.0-3.0); HEMATOCRIT 35.5 % (36.0-47.0); LYMPH # 0.7 10^3/uL (1.5-5.0); LYMPH % 4.3 % (24.0-44.0); MEAN CORPUSCULAR HEMOGLOBIN 27.5 pg (27.0-33.0); MEAN CORPUSCULAR VOLUME 88.8 fl (80.0-96.0); MONO # 0.4 10^3/uL (0.0-0.8); MONO % 2.3 % (2.0-8.0); NEUTROPHILS # 15.6 10^3/uL (1.5-8.5); NEUTROPHILS % 92.7 % (36.0-66.0); PLATELET COUNT, AUTOMATED 292 10^3/uL (150-450); WHITE BLOOD COUNT 16.9 10^3/uL (4.0-10.0)
[2023-11-13 10:14] LABS: APPEARANCE, URINE CLEAR (CLEAR); BACTERIA, URINE AUTO NEGATIVE (NEGATIVE); BILIRUBIN, URINE AUTO NEGATIVE (NEGATIVE); BLOOD, URINE BLOOD NEGATIVE (NEGATIVE); COLOR, URINE STRAW (YELLOW); GLUCOSE, URINE (UA) AUTO NEGATIVE (NEGATIVE); KETONE, URINE AUTO NEGATIVE (NEGATIVE); LEUKOCYTE ESTERASE, URINE AUTO NEGATIVE (NEGATIVE); MUCUS, URINE SMALL (NEGATIVE); NITRITE, URINE AUTO NEGATIVE (NEGATIVE); PROTEIN, URINE AUTO NEGATIVE (NEGATIVE); RBC, URINE AUTO 0 /HPF (0-3); SQUAMOUS EPITHELIAL CELL UR AU 2 /HPF (0-6); UROBILINOGEN, URINE AUTO 0.2 mg/dL (0.0-2.0); WBC, URINE AUTO 2 /HPF (0-3)
[2023-11-13 10:35] LABS: ALBUMIN 2.9 G/DL (3.2-5.2); ALKALINE PHOSPHATASE 108 U/L (46-116); ALT/SGPT 18 U/L (7.0-40); AST/SGOT 9 U/L (<34); BILIRUBIN,TOTAL 0.3 MG/DL (0.3-1.2); BLOOD UREA NITROGEN 22 MG/DL (9-23); CALCIUM LEVEL 8.6 MG/DL (8.3-10.6); CARBON DIOXIDE LEVEL 29 MMOL/L (20-31); CHLORIDE LEVEL 104 MMOL/L (98-107); CREATININE FOR GFR 0.78 MG/DL (0.55-1.30); GLOMERULAR FILTRATION RATE > 60.0 (>39); GLUCOSE, FASTING 207 MG/DL (74-106); POTASSIUM SERUM 4.1 MMOL/L (3.5-5.1); SODIUM LEVEL 140 MMOL/L (136-145); TOTAL PROTEIN 6.5 G/DL (5.7-8.2)
== END ==
LOC: M WUC 08:49
PROVIDERS: ATTEND Family Medicine
DX: Z79.899 Other long term (current) drug therapy (principal)

== ENCOUNTER → 2023-11-29 | Outpatient (REF) | payer MEDICARE, MEDICAID ==
[2023-11-29 13:07] LABS: BASO % 0.6 % (0.0-1.0); EOS # 0.2 10^3/uL (0.0-0.5); EOS % 3.9 % (0.0-3.0); HEMATOCRIT 36.6 % (36.0-47.0); LYMPH # 1.7 10^3/uL (1.5-5.0); MEAN CORPUSCULAR HEMOGLOBIN 27.2 pg (27.0-33.0); MEAN CORPUSCULAR HGB CONC 30.1 g/dl (32.0-36.5); MEAN CORPUSCULAR VOLUME 90.4 fl (80.0-96.0); MONO # 0.3 10^3/uL (0.0-0.8); MONO % 6.4 % (2.0-8.0); NEUTROPHILS # 2.9 10^3/uL (1.5-8.5); NEUTROPHILS % 56.9 % (36.0-66.0); PLATELET COUNT, AUTOMATED 310 10^3/uL (150-450); RED BLOOD COUNT 4.05 10^6/uL (4.00-5.40); WHITE BLOOD COUNT 5.2 10^3/uL (4.0-10.0)
[2023-11-29 13:17] LABS: AMORPHOUS SEDIMENT SMALL (NEGATIVE); APPEARANCE, URINE CLOUDY (CLEAR); BACTERIA, URINE AUTO 1+ (NEGATIVE); BILIRUBIN, URINE AUTO NEGATIVE (NEGATIVE); BLOOD, URINE BLOOD NEGATIVE (NEGATIVE); COLOR, URINE YELLOW (YELLOW); GLUCOSE, URINE (UA) AUTO NEGATIVE (NEGATIVE); KETONE, URINE AUTO NEGATIVE (NEGATIVE); LEUKOCYTE ESTERASE, URINE AUTO NEGATIVE (NEGATIVE); MUCUS, URINE SMALL (NEGATIVE); NITRITE, URINE AUTO NEGATIVE (NEGATIVE); PROTEIN, URINE AUTO NEGATIVE (NEGATIVE); RBC, URINE AUTO 0 /HPF (0-3); SPECIFIC GRAVITY URINE AUTO 1.012 (1.002-1.035); SQUAMOUS EPITHELIAL CELL UR AU 1 /HPF (0-6); UROBILINOGEN, URINE AUTO 0.2 mg/dL (0.0-2.0); WBC, URINE AUTO 1 /HPF (0-3)
== END ==
LOC: M LABWUC 12:11
PROVIDERS: ATTEND Family Medicine
DX: N39.0 Urinary tract infection, site not specified (principal)

== ENCOUNTER → 2023-12-18 | Outpatient (CLI) | payer MEDICARE, MEDICAID | LOC: M LAB 07:18 | PROVIDERS: ATTEND Family Medicine | DX: E27.9 Disorder of adrenal gland, unspecified (principal) ==

== ENCOUNTER → 2024-01-03 | Outpatient (CLI) | payer MEDICARE, MEDICAID ==
[~2024-01-03] MED LIST changes: +ISOVUE-370 76% 100ML VIAL As Ordered ONE
== END ==
LOC: M RAD 10:36
PROVIDERS: ATTEND Family Medicine
DX: E27.8 Other specified disorders of adrenal gland (principal); I51.7 Cardiomegaly; I70.0 Atherosclerosis of aorta; K44.9 Diaphragmatic hernia without obstruction or gangrene; Z95.828 Presence of other vascular implants and grafts; M48.56XA Collapsed vertebra, not elsewhere classified, lumbar region, initial encounter for fracture
CPT/HCPCS: 74170; Q9967

== ENCOUNTER → 2024-02-13 | Outpatient (REF) | payer MEDICARE, MEDICAID ==
[~2024-02-13] MED LIST changes: -ISOVUE-370 76% 100ML VIAL As Ordered ONE
== END ==
LOC: M LAB REF 15:25
PROVIDERS: ATTEND Surgery
DX: L72.3 Sebaceous cyst (principal)

== ENCOUNTER 2024-06-24 06:20 | Inpatient (IN) | payer MEDICARE, MEDICAID ==
[~2024-06-24] VITALS: Ht 157.5 cm; Wt 65.0 kg
[~2024-06-24 06:20] MED LIST changes: -GOOD8.6T2 PO; +NAPR-1405 PO; -NAPR500T6 PO; +SENN-117 PO
[2024-06-24 07:14] LABS: BLOOD UREA NITROGEN 17 MG/DL (9-23); CALCIUM LEVEL 8.6 MG/DL (8.3-10.6); CARBON DIOXIDE LEVEL 28 MMOL/L (20-31); CHLORIDE LEVEL 103 MMOL/L (98-107); CK-MB VALUE MASS < 1.0 NG/ML (<3.6); CREATININE FOR GFR 0.67 MG/DL (0.55-1.30); GLOMERULAR FILTRATION RATE > 60.0 (>39); GLUCOSE, FASTING 145 MG/DL (74-106); POTASSIUM SERUM 4.4 MMOL/L (3.5-5.1); SODIUM LEVEL 142 MMOL/L (136-145)
[2024-06-24 07:20] LABS: CPK CREATINE PHOSPHOKINASE 73 U/L (34-145); MB/CK RELATIVE INDEX 1.36 (< OR =4)
[2024-06-24 07:22] LABS: BASO % 0.2 % (0.0-1.0); EOS # 0.1 10^3/uL (0.0-0.5); EOS % 1.8 % (0.0-3.0); HEMATOCRIT 39.1 % (36.0-47.0); HEMOGLOBIN 12.4 g/dl (12.0-15.5); LYMPH # 1.1 10^3/uL (1.5-5.0); LYMPH % 18.1 % (24.0-44.0); MEAN CORPUSCULAR HEMOGLOBIN 28.6 pg (27.0-33.0); MEAN CORPUSCULAR HGB CONC 31.7 g/dl (32.0-36.5); MEAN CORPUSCULAR VOLUME 90.3 fl (80.0-96.0); MONO # 0.4 10^3/uL (0.0-0.8); MONO % 7.1 % (2.0-8.0); NEUTROPHILS # 4.4 10^3/uL (1.5-8.5); NEUTROPHILS % 72.1 % (36.0-66.0); PLATELET COUNT, AUTOMATED 203 10^3/uL (150-450); RED BLOOD COUNT 4.33 10^6/uL (4.00-5.40)
[2024-06-24] MEDS ORDERED: HOME MED LIST COMPLETE! XX SCH (10:40)
[2024-06-24 11:40] LABS: INR 0.94; PARTIAL THROMBOPLASTIN TIME 30.9 SECONDS (24.8-34.2); PROTHROMBIN TIME 12.9 SECONDS (12.5-14.5)
[2024-06-24] MEDS: PANTOPRAZOLE 40MG TAB (PROTONIX) PO SCH (12:01)
[2024-06-24] MEDS: FUROSEMIDE 20 MG TAB PO SCH (12:02)
[2024-06-24] MEDS: risperiDONE 3 MG TAB PO SCH (12:02)
[2024-06-24] MEDS: VENLAFAXINE **XR** 75MG CAPSULE PO SCH (12:02)
[2024-06-24] MEDS: DONEPEZIL 5 MG TAB PO SCH (12:02)
[2024-06-24] MEDS: ACETAMINOPHEN 325 MG TAB PO PRN (13:55)
[2024-06-24 13:56] VITALS: BP 125/85; TEMP 97.2; O2SAT 92
[2024-06-24] MEDS: MORPHINE 2 MG/ML 1ML VIAL IV PRN (17:39)
[2024-06-24 19:57] VITALS: BP 116/80; TEMP 97.7; O2SAT 93
[2024-06-24] MEDS: SENOKOT S TAB PO SCH (21:47)
[2024-06-24] MEDS: ATORVASTATIN 20 MG TAB PO SCH (21:47)
[2024-06-24] MEDS: ASPIRIN 81MG ENTERIC TABLET PO SCH (21:47)
[2024-06-25] VITALS (8 sets, daily range): BP systolic 98–133; BP diastolic 53–96; TEMP 97.5–98.4; O2SAT 93–98
[2024-06-25] MEDS: MORPHINE 4 MG/ML 1ML VIAL IV PRN (03:34)
[2024-06-25 05:20] LABS: HEMATOCRIT 35.7 % (36.0-47.0); HEMOGLOBIN 11.3 g/dl (12.0-15.5); MEAN CORPUSCULAR HEMOGLOBIN 27.5 pg (27.0-33.0); MEAN CORPUSCULAR HGB CONC 31.7 g/dl (32.0-36.5); MEAN CORPUSCULAR VOLUME 86.9 fl (80.0-96.0); PLATELET COUNT, AUTOMATED 195 10^3/uL (150-450); RED BLOOD COUNT 4.11 10^6/uL (4.00-5.40); WHITE BLOOD COUNT 8.3 10^3/uL (4.0-10.0)
[2024-06-25 05:39] LABS: ALBUMIN 2.7 G/DL (3.2-5.2); ALKALINE PHOSPHATASE 93 U/L (35-104); ALT/SGPT 15 U/L (7.0-40); AST/SGOT 9 U/L (<34); BILIRUBIN,TOTAL 0.7 MG/DL (0.3-1.2); BLOOD UREA NITROGEN 12 MG/DL (9-23); CALCIUM LEVEL 8.2 MG/DL (8.3-10.6); CARBON DIOXIDE LEVEL 29 MMOL/L (20-31); CHLORIDE LEVEL 104 MMOL/L (98-107); CREATININE FOR GFR 0.64 MG/DL (0.55-1.30); GLOMERULAR FILTRATION RATE > 60.0 (>39); GLUCOSE, FASTING 98 MG/DL (74-106); POTASSIUM SERUM 3.7 MMOL/L (3.5-5.1); SODIUM LEVEL 142 MMOL/L (136-145); TOTAL PROTEIN 6.1 G/DL (5.7-8.2)
[2024-06-25] MEDS ORDERED: fentaNYL 100 MCG/2 ML INJECTION As Ordered ONE (12:38)
[2024-06-25] MEDS ORDERED: propofoL 200 MG/20 ML VIAL As Ordered ONE (12:38)
[2024-06-25] MEDS ORDERED: LIDOCAINE 2% 100MG/5ML SDV (FOR ANES.) As Ordered ONE (12:38)
[2024-06-25] MEDS ORDERED: ROCURONIUM BROMIDE 50MG/5ML VIAL As Ordered ONE (12:38)
[2024-06-25] MEDS ORDERED: ACETAMINOPHEN 1000MG/100ML IV BAG As Ordered ONE (12:44)
[2024-06-25] MEDS: ceFAZolin 2 GM/D5W 50 ML IV BAG As Ordered ONE (13:40)
[2024-06-25] MEDS: TRANEXAMIC ACID 100 MG/ML 10ML VIAL As Ordered ONE (13:45)
[2024-06-25] MEDS ORDERED: PHENYLephrine 500MCG 5ML (100MCG/ML) SYRINGE As Ordered ONE (14:24)
[2024-06-25] MEDS ORDERED: ONDANSETRON 4MG 2ML VIAL As Ordered ONE (14:38)
[2024-06-25] MEDS ORDERED: SUGAMMADEX SODIUM 500 MG/5 ML VIAL (BRIDION) As Ordered ONE (14:39)
[2024-06-25] MEDS ORDERED: oxyCODONE 5MG TAB PO PRN (14:55)
[2024-06-25] MEDS ORDERED: ONDANSETRON 4MG 2ML VIAL IV PRN (14:55)
[2024-06-25] MEDS ORDERED: fentaNYL 100 MCG/2 ML INJECTION IV PRN (14:55)
[2024-06-25] MEDS ORDERED: HYDROMORPHONE HCL 0.5 MG/ 0.5 ML SYRINGE IV PRN (14:55)
[2024-06-25] MEDS: NS (Normal Saline) 0.9% 1,000 ML IV SCH (18:33)
[2024-06-25] MEDS: ceFAZolin SOD 2 GM in IV 1 EA IV SCH (22:16)
[2024-06-26] VITALS: BP 112/63; TEMP 98.4; O2SAT 97
[2024-06-26 04:00] VITALS: BP 113/64; TEMP 98.4; O2SAT 96
[2024-06-26 06:24] LABS: HEMATOCRIT 31.9 % (36.0-47.0); MEAN CORPUSCULAR HEMOGLOBIN 27.9 pg (27.0-33.0); MEAN CORPUSCULAR HGB CONC 31.3 g/dl (32.0-36.5); MEAN CORPUSCULAR VOLUME 89.1 fl (80.0-96.0); PLATELET COUNT, AUTOMATED 170 10^3/uL (150-450); RED BLOOD COUNT 3.58 10^6/uL (4.00-5.40)
[2024-06-26 06:54] LABS: ALBUMIN 2.5 G/DL (3.2-5.2); ALKALINE PHOSPHATASE 85 U/L (35-104); ALT/SGPT 11 U/L (7.0-40); AST/SGOT 15 U/L (<34); BILIRUBIN,TOTAL 0.5 MG/DL (0.3-1.2); BLOOD UREA NITROGEN 13 MG/DL (9-23); CALCIUM LEVEL 7.5 MG/DL (8.3-10.6); CARBON DIOXIDE LEVEL 30 MMOL/L (20-31); CHLORIDE LEVEL 102 MMOL/L (98-107); CREATININE FOR GFR 0.58 MG/DL (0.55-1.30); GLOMERULAR FILTRATION RATE > 60.0 (>39); GLUCOSE, FASTING 139 MG/DL (74-106); POTASSIUM SERUM 3.9 MMOL/L (3.5-5.1); SODIUM LEVEL 139 MMOL/L (136-145); TOTAL PROTEIN 5.7 G/DL (5.7-8.2)
[2024-06-26 08:05] VITALS: BP 115/76; TEMP 98.4; O2SAT 98
[2024-06-26] MEDS: PERCOCET 5MG/325MG TAB PO PRN ×2 (09:10→21:22)
[2024-06-26 11:45] VITALS: O2SAT 97
[2024-06-26 12:00] VITALS: BP 126/66; TEMP 97.9; O2SAT 97
[2024-06-26 21:17] VITALS: BP 131/93; TEMP 98.4; O2SAT 95
[2024-06-27] VITALS (7 sets, daily range): BP systolic 125–155; BP diastolic 63–88; TEMP 98.4–99.5; O2SAT 92–98
[2024-06-27 05:08] LABS: HEMATOCRIT 29.8 % (36.0-47.0); HEMOGLOBIN 9.2 g/dl (12.0-15.5); MEAN CORPUSCULAR HEMOGLOBIN 27.8 pg (27.0-33.0); MEAN CORPUSCULAR HGB CONC 30.9 g/dl (32.0-36.5); PLATELET COUNT, AUTOMATED 163 10^3/uL (150-450); RED BLOOD COUNT 3.31 10^6/uL (4.00-5.40); WHITE BLOOD COUNT 7.6 10^3/uL (4.0-10.0)
[2024-06-27 05:31] LABS: ALBUMIN 2.3 G/DL (3.2-5.2); ALKALINE PHOSPHATASE 98 U/L (35-104); ALT/SGPT 11 U/L (7.0-40); AST/SGOT 20 U/L (<34); BILIRUBIN,TOTAL 0.3 MG/DL (0.3-1.2); BLOOD UREA NITROGEN 19 MG/DL (9-23); CALCIUM LEVEL 8.1 MG/DL (8.3-10.6); CARBON DIOXIDE LEVEL 30 MMOL/L (20-31); CHLORIDE LEVEL 103 MMOL/L (98-107); CREATININE FOR GFR 0.55 MG/DL (0.55-1.30); GLOMERULAR FILTRATION RATE > 60.0 (>39); GLUCOSE, FASTING 140 MG/DL (74-106); POTASSIUM SERUM 4.2 MMOL/L (3.5-5.1); SODIUM LEVEL 140 MMOL/L (136-145); TOTAL PROTEIN 5.7 G/DL (5.7-8.2)
[2024-06-28 04:14] VITALS: BP 141/65; TEMP 98.8; O2SAT 94
[2024-06-28 06:31] LABS: HEMATOCRIT 28.4 % (36.0-47.0); HEMOGLOBIN 8.8 g/dl (12.0-15.5); MEAN CORPUSCULAR VOLUME 90.4 fl (80.0-96.0); PLATELET COUNT, AUTOMATED 205 10^3/uL (150-450); RED BLOOD COUNT 3.14 10^6/uL (4.00-5.40); WHITE BLOOD COUNT 6.4 10^3/uL (4.0-10.0)
[2024-06-28 06:54] LABS: ALKALINE PHOSPHATASE 77 U/L (35-104); ALT/SGPT 15 U/L (7.0-40); AST/SGOT 17 U/L (<34); BILIRUBIN,TOTAL 0.3 MG/DL (0.3-1.2); BLOOD UREA NITROGEN 19 MG/DL (9-23); CALCIUM LEVEL 7.4 MG/DL (8.3-10.6); CARBON DIOXIDE LEVEL 31 MMOL/L (20-31); CHLORIDE LEVEL 105 MMOL/L (98-107); CREATININE FOR GFR 0.58 MG/DL (0.55-1.30); GLOMERULAR FILTRATION RATE > 60.0 (>39); GLUCOSE, FASTING 100 MG/DL (74-106); POTASSIUM SERUM 4.3 MMOL/L (3.5-5.1); SODIUM LEVEL 143 MMOL/L (136-145); TOTAL PROTEIN 5.3 G/DL (5.7-8.2)
[2024-06-28 08:18] VITALS: BP 133/61
[2024-06-28 12:00] VITALS: BP 139/72; TEMP 97.6; O2SAT 94
[2024-06-28 21:07] VITALS: BP 148/87; TEMP 99.1; O2SAT 94
[2024-06-29 03:43] VITALS: BP 147/85; TEMP 98.6; O2SAT 95
[2024-06-29 04:53] LABS: HEMATOCRIT 28.2 % (36.0-47.0); HEMOGLOBIN 8.8 g/dl (12.0-15.5); MEAN CORPUSCULAR HEMOGLOBIN 27.8 pg (27.0-33.0); MEAN CORPUSCULAR HGB CONC 31.2 g/dl (32.0-36.5); MEAN CORPUSCULAR VOLUME 89.2 fl (80.0-96.0); PLATELET COUNT, AUTOMATED 245 10^3/uL (150-450); RED BLOOD COUNT 3.16 10^6/uL (4.00-5.40); WHITE BLOOD COUNT 7.5 10^3/uL (4.0-10.0)
[2024-06-29 05:13] LABS: ALKALINE PHOSPHATASE 74 U/L (35-104); ALT/SGPT 18 U/L (7.0-40); AST/SGOT 19 U/L (<34); BILIRUBIN,TOTAL 0.4 MG/DL (0.3-1.2); BLOOD UREA NITROGEN 17 MG/DL (9-23); CALCIUM LEVEL 7.8 MG/DL (8.3-10.6); CARBON DIOXIDE LEVEL 30 MMOL/L (20-31); CHLORIDE LEVEL 103 MMOL/L (98-107); CREATININE FOR GFR 0.54 MG/DL (0.55-1.30); GLOMERULAR FILTRATION RATE > 60.0 (>39); GLUCOSE, FASTING 98 MG/DL (74-106); POTASSIUM SERUM 4.4 MMOL/L (3.5-5.1); SODIUM LEVEL 139 MMOL/L (136-145); TOTAL PROTEIN 5.4 G/DL (5.7-8.2)
[2024-06-29 08:43] VITALS: BP 130/56
[2024-06-29 09:35] LABS: C REACTIVE PROTEIN QUANTITATIV 12.87 MG/DL (<1.0)
[2024-06-29] MEDS: ENOXAPARIN 40MG/0.4ML SYRINGE (J1650 PER 10MG) SC SCH (11:06)
[2024-06-29 12:00] VITALS: BP 124/82; TEMP 97.7; O2SAT 94
[2024-06-29 19:39] VITALS: BP 126/58; TEMP 98.8; O2SAT 96
[2024-06-30] MEDS: ceFAZolin SOD 1 GM in DEXTROSE 5% (D5W) ADV/MINI-BAG 50 ML IV SCH (00:44)
[2024-06-30 03:28] VITALS: BP 111/63; TEMP 99; O2SAT 96
[2024-06-30 06:52] LABS: HEMATOCRIT 27.8 % (36.0-47.0); HEMOGLOBIN 8.6 g/dl (12.0-15.5); MEAN CORPUSCULAR HEMOGLOBIN 27.3 pg (27.0-33.0); MEAN CORPUSCULAR HGB CONC 30.9 g/dl (32.0-36.5); MEAN CORPUSCULAR VOLUME 88.3 fl (80.0-96.0); PLATELET COUNT, AUTOMATED 282 10^3/uL (150-450); RED BLOOD COUNT 3.15 10^6/uL (4.00-5.40); WHITE BLOOD COUNT 6.8 10^3/uL (4.0-10.0)
[2024-06-30 07:36] LABS: C REACTIVE PROTEIN QUANTITATIV 12.98 MG/DL (<1.0)
[2024-06-30 07:51] LABS: ALBUMIN 1.8 G/DL (3.2-5.2); ALKALINE PHOSPHATASE 74 U/L (35-104); ALT/SGPT 32 U/L (7.0-40); AST/SGOT 35 U/L (<34); BILIRUBIN,TOTAL 0.4 MG/DL (0.3-1.2); BLOOD UREA NITROGEN 15 MG/DL (9-23); CALCIUM LEVEL 8.1 MG/DL (8.3-10.6); CARBON DIOXIDE LEVEL 26 MMOL/L (20-31); CHLORIDE LEVEL 103 MMOL/L (98-107); GLOMERULAR FILTRATION RATE > 60.0 (>39); GLUCOSE, FASTING 153 MG/DL (74-106); POTASSIUM SERUM 4.1 MMOL/L (3.5-5.1); SODIUM LEVEL 139 MMOL/L (136-145); TOTAL PROTEIN 5.3 G/DL (5.7-8.2)
[2024-06-30 07:59] VITALS: BP 118/58; TEMP 98.9
[2024-06-30] MEDS ORDERED: CEFUROXIME 500 MG TAB PO SCH ×2 (09:00→21:00)
[2024-06-30] MEDS ORDERED: NAPR-885 PO (10:43)
[2024-06-30] MEDS ORDERED: PERCOCET PO (10:43)
[2024-06-30] MEDS ORDERED: ACET32TAB PO (10:43)
[2024-06-30] MEDS ORDERED: CEFU50TA PO (10:43)
[2024-06-30] MEDS ORDERED: LOVE1INJ SC (10:43)
[2024-06-30 12:00] VITALS: BP 127/70; TEMP 98.1; O2SAT 93
[2024-06-30] MEDS ORDERED: ceFAZolin SOD 1 GM in DEXTROSE 5% (D5W) ADV/MINI-BAG 50 ML IV SCH (16:00)
[2024-07-01] MEDS ORDERED: CEFUROXIME 500 MG TAB PO SCH (09:00)
== END 2024-06-30 11:51 | DRG 522 ==
LOC: EDBD 06:20 → M ED 06:20 → M ED INP 10:45 → M MSPAV 13:47
PROVIDERS: ADMIT Internal Medicine; ATTEND Internal Medicine Nephrology
PROC: 0SRS0J9 Replacement of Left Hip Joint, Femoral Surface with Synthetic Substitute, Cemented, Open Approach (ICD-10-PCS; principal; 2024-06-25 12:40)
DX: S72.002A Fracture of unspecified part of neck of left femur, initial encounter for closed fracture (principal); G91.8 Other hydrocephalus; D62 Acute posthemorrhagic anemia; W18.30XA Fall on same level, unspecified, initial encounter; Y92.199 Unspecified place in other specified residential institution as the place of occurrence of the external cause; Y93.9 Activity, unspecified; Y99.8 Other external cause status; I10 Essential (primary) hypertension; Z98.2 Presence of cerebrospinal fluid drainage device; F79 Unspecified intellectual disabilities; M19.90 Unspecified osteoarthritis, unspecified site; R13.10 Dysphagia, unspecified; K21.9 Gastro-esophageal reflux disease without esophagitis; F32.A Depression, unspecified; F03.90 Unspecified dementia, unspecified severity, without behavioral disturbance, psychotic disturbance, mood disturbance, and anxiety; R29.6 Repeated falls; Z85.3 Personal history of malignant neoplasm of breast; Z90.12 Acquired absence of left breast and nipple; M81.0 Age-related osteoporosis without current pathological fracture; Z79.82 Long term (current) use of aspirin; Z79.899 Other long term (current) drug therapy; Z88.6 Allergy status to analgesic agent; I95.89 Other hypotension; E78.5 Hyperlipidemia, unspecified

== ENCOUNTER 2024-06-30 12:00 | Inpatient (IN) | payer MEDICARE, MEDICAID ==
[~2024-06-30] VITALS: Ht 157.5 cm; Wt 66.3 kg
[2024-06-30 12:00] VITALS: BP 127/71; TEMP 98.4; O2SAT 95
[~2024-06-30 12:00] MED LIST changes: +ACET32TAB PO; +CEFU50TA PO; +LOVE1INJ SC; +NAPR-885 PO; +PERCOCET PO
[2024-06-30] MEDS ORDERED: BISACODYL 5MG TAB PO PRN (13:50)
[2024-06-30] MEDS ORDERED: MAALOX 30 ML SUSP *UDC PO PRN (13:50)
[2024-06-30] MEDS ORDERED: ONDANSETRON 4MG ORAL DISINTEGRATING TAB PO PRN (13:50)
[2024-06-30] MEDS ORDERED: MOM 30ML SUSPENSION UDC PO PRN (13:50)
[2024-06-30] MEDS ORDERED: BISACODYL 10MG SUPP PR PRN (13:50)
[2024-06-30] MEDS ORDERED: FLEET ENEMA PR PRN (13:50)
[2024-06-30] MEDS: PERCOCET 5MG/325MG TAB PO PRN ×2 (14:56→20:47)
[2024-06-30 20:00] VITALS: BP 126/62; TEMP 97.6; O2SAT 95
[2024-06-30] MEDS: ASPIRIN 81MG ENTERIC TABLET PO SCH (20:46)
[2024-06-30] MEDS: CEFUROXIME 500 MG TAB PO SCH (20:46)
[2024-06-30] MEDS: ATORVASTATIN 20 MG TAB PO SCH (20:46)
[2024-06-30] MEDS: risperiDONE 3 MG TAB PO SCH (20:46)
[2024-06-30] MEDS: CALCIUM/VITAMIN D 500 MG TAB PO SCH (20:46)
[2024-06-30] MEDS: SENOKOT S TAB PO SCH (20:46)
[2024-07-01 04:30] VITALS: BP 157/77; TEMP 97.1; O2SAT 95
[2024-07-01 06:34] LABS: BASO % 0.8 % (0.0-1.0); EOS # 0.3 10^3/uL (0.0-0.5); EOS % 5.9 % (0.0-3.0); HEMATOCRIT 28.5 % (36.0-47.0); HEMOGLOBIN 8.9 g/dl (12.0-15.5); LYMPH # 1.4 10^3/uL (1.5-5.0); LYMPH % 28.3 % (24.0-44.0); MEAN CORPUSCULAR HEMOGLOBIN 27.7 pg (27.0-33.0); MEAN CORPUSCULAR HGB CONC 31.2 g/dl (32.0-36.5); MEAN CORPUSCULAR VOLUME 88.8 fl (80.0-96.0); MONO # 0.6 10^3/uL (0.0-0.8); MONO % 11.3 % (2.0-8.0); NEUTROPHILS # 2.7 10^3/uL (1.5-8.5); NEUTROPHILS % 53.3 % (36.0-66.0); PLATELET COUNT, AUTOMATED 317 10^3/uL (150-450); RED BLOOD COUNT 3.21 10^6/uL (4.00-5.40); WHITE BLOOD COUNT 5.1 10^3/uL (4.0-10.0)
[2024-07-01] MEDS: DONEPEZIL 5 MG TAB PO SCH (08:14)
[2024-07-01] MEDS: PANTOPRAZOLE 40MG TAB (PROTONIX) PO SCH (08:14)
[2024-07-01] MEDS: VENLAFAXINE **XR** 75MG CAPSULE PO SCH (08:14)
[2024-07-01] MEDS: ENOXAPARIN 40MG/0.4ML SYRINGE (J1650 PER 10MG) SC SCH (08:14)
[2024-07-01 08:26] LABS: BLOOD UREA NITROGEN 13 MG/DL (9-23); CALCIUM LEVEL 7.8 MG/DL (8.3-10.6); CARBON DIOXIDE LEVEL 31 MMOL/L (20-31); CHLORIDE LEVEL 108 MMOL/L (98-107); CREATININE FOR GFR 0.57 MG/DL (0.55-1.30); GLOMERULAR FILTRATION RATE > 60.0 (>39); GLUCOSE, FASTING 96 MG/DL (74-106); POTASSIUM SERUM 4.5 MMOL/L (3.5-5.1); SODIUM LEVEL 144 MMOL/L (136-145)
[2024-07-01] MEDS: FUROSEMIDE 20 MG TAB PO SCH (08:29)
[2024-07-01] MEDS: ACETAMINOPHEN 325 MG TAB PO PRN (11:32)
[2024-07-01 12:00] VITALS: BP 121/86; TEMP 97.1; O2SAT 95
[2024-07-01 20:00] VITALS: BP 120/58; TEMP 99.1; O2SAT 96
[2024-07-01] MEDS: CEFUROXIME 500 MG TAB PO SCH (20:41)
[2024-07-02 04:11] VITALS: BP 145/68; TEMP 98.5; O2SAT 94
[2024-07-02 12:00] VITALS: BP 140/68; TEMP 97.8; O2SAT 95
[2024-07-02] MEDS: DICLOFENAC EPOLAMINE 1.3% PATCH TOP SCH (16:33)
[2024-07-02 19:35] VITALS: BP 178/80; TEMP 98.3; O2SAT 97
[2024-07-03 04:00] VITALS: BP 120/56; TEMP 98.3; O2SAT 96
[2024-07-03 07:25] LABS: BASO % 0.3 % (0.0-1.0); EOS # 0.2 10^3/uL (0.0-0.5); EOS % 4.2 % (0.0-3.0); HEMATOCRIT 28.5 % (36.0-47.0); LYMPH # 1.5 10^3/uL (1.5-5.0); LYMPH % 26.4 % (24.0-44.0); MEAN CORPUSCULAR HEMOGLOBIN 28.1 pg (27.0-33.0); MEAN CORPUSCULAR HGB CONC 31.6 g/dl (32.0-36.5); MEAN CORPUSCULAR VOLUME 89.1 fl (80.0-96.0); MONO # 0.5 10^3/uL (0.0-0.8); MONO % 8.7 % (2.0-8.0); NEUTROPHILS # 3.4 10^3/uL (1.5-8.5); NEUTROPHILS % 59.4 % (36.0-66.0); PLATELET COUNT, AUTOMATED 404 10^3/uL (150-450); WHITE BLOOD COUNT 5.7 10^3/uL (4.0-10.0)
[2024-07-03 12:00] VITALS: BP 129/64; TEMP 97.9; O2SAT 94
[2024-07-03 20:00] VITALS: BP 119/56; TEMP 98.4; O2SAT 96
[2024-07-04 04:00] VITALS: BP 130/58; TEMP 98.4; O2SAT 96
[2024-07-04 12:00] VITALS: BP 118/68; TEMP 98; O2SAT 96
[2024-07-04] MEDS: methocarbamoL 500 MG TAB PO PRN (16:35)
[2024-07-04 20:00] VITALS: BP 136/78; TEMP 99.1; O2SAT 94
[2024-07-05 04:00] VITALS: BP 139/63; TEMP 99.3; O2SAT 94
[2024-07-05 12:00] VITALS: BP 138/81; TEMP 98.1; O2SAT 97
[2024-07-05 20:18] VITALS: BP 138/61; TEMP 97.5; O2SAT 96
[2024-07-06 03:49] VITALS: BP 141/67; TEMP 97.6; O2SAT 97
[2024-07-06 08:50] LABS: BASO % 0.3 % (0.0-1.0); EOS # 0.2 10^3/uL (0.0-0.5); EOS % 3.3 % (0.0-3.0); HEMATOCRIT 30.3 % (36.0-47.0); HEMOGLOBIN 9.5 g/dl (12.0-15.5); LYMPH % 14.9 % (24.0-44.0); MEAN CORPUSCULAR HEMOGLOBIN 28.7 pg (27.0-33.0); MEAN CORPUSCULAR HGB CONC 31.4 g/dl (32.0-36.5); MEAN CORPUSCULAR VOLUME 91.5 fl (80.0-96.0); MONO # 0.4 10^3/uL (0.0-0.8); MONO % 5.6 % (2.0-8.0); NEUTROPHILS # 4.8 10^3/uL (1.5-8.5); PLATELET COUNT, AUTOMATED 539 10^3/uL (150-450); RED BLOOD COUNT 3.31 10^6/uL (4.00-5.40); WHITE BLOOD COUNT 6.4 10^3/uL (4.0-10.0)
[2024-07-06 11:52] VITALS: BP 122/66; TEMP 98; O2SAT 95
[2024-07-06] MEDS: POLYVINYL ALCOHOL OPHTH SOLN 15ML (LIQUITEARS) OD SCH (13:08)
[2024-07-06] MEDS ORDERED: PERCOCET PO (16:22)
[2024-07-06] MEDS ORDERED: PANT40TA29 PO (16:22)
[2024-07-06] MEDS ORDERED: METH-1164 PO (16:22)
[2024-07-06] MEDS ORDERED: ECOT81TA5 PO (16:22)
[2024-07-06] MEDS ORDERED: DICL1PAT6 TOP (16:22)
[2024-07-06 19:58] VITALS: BP 134/60; TEMP 98.9; O2SAT 96
[2024-07-07 04:04] VITALS: BP 153/73; TEMP 97.5; O2SAT 97
[2024-07-07] MEDS: LOPERAMIDE 2 MG CAPLET PO ONE (11:03)
[2024-07-07 12:00] VITALS: BP 125/59; TEMP 98.5; O2SAT 98
== END 2024-07-07 16:00 | disposition home or self-care (01) | DRG 560 ==
LOC: M PM&R 12:00
PROVIDERS: ADMIT Physical Medicine & Rehabilitation; ATTEND Physical Medicine & Rehabilitation
DX: S72.002D Fracture of unspecified part of neck of left femur, subsequent encounter for closed fracture with routine healing (principal); G91.8 Other hydrocephalus; T81.41XA Infection following a procedure, superficial incisional surgical site, initial encounter; L03.116 Cellulitis of left lower limb; D62 Acute posthemorrhagic anemia; F79 Unspecified intellectual disabilities; M19.90 Unspecified osteoarthritis, unspecified site; R13.12 Dysphagia, oropharyngeal phase; K21.9 Gastro-esophageal reflux disease without esophagitis; F32.A Depression, unspecified; F03.90 Unspecified dementia, unspecified severity, without behavioral disturbance, psychotic disturbance, mood disturbance, and anxiety; F41.9 Anxiety disorder, unspecified; I10 Essential (primary) hypertension; R29.6 Repeated falls; G51.0 Bell's palsy; M25.572 Pain in left ankle and joints of left foot; M81.0 Age-related osteoporosis without current pathological fracture; R07.81 Pleurodynia; H57.11 Ocular pain, right eye; Z74.1 Need for assistance with personal care; Z98.2 Presence of cerebrospinal fluid drainage device; Z74.09 Other reduced mobility; Z96.642 Presence of left artificial hip joint; Z85.3 Personal history of malignant neoplasm of breast; Z90.12 Acquired absence of left breast and nipple; Z79.82 Long term (current) use of aspirin; Y83.1 Surgical operation with implant of artificial internal device as the cause of abnormal reaction of the patient, or of later complication, without mention of misadventure at the time of the procedure; Z88.6 Allergy status to analgesic agent; Z79.899 Other long term (current) drug therapy

== ENCOUNTER → 2024-07-09 | Outpatient (CLI) | payer MEDICARE, MEDICAID ==
[~2024-07-09] MED LIST changes: +DICL1PAT6 TOP; +METH-1164 PO
== END ==
LOC: M WUC 14:20
PROVIDERS: ATTEND Physician Assistant
DX: M25.552 Pain in left hip (principal)

== ENCOUNTER → 2024-07-23 | Outpatient (CLI) | payer MEDICARE, MEDICAID | LOC: M SOG 07:55 | PROVIDERS: ATTEND Physician Assistant | DX: S72.002A Fracture of unspecified part of neck of left femur, initial encounter for closed fracture (principal); W18.30XA Fall on same level, unspecified, initial encounter; Y92.009 Unspecified place in unspecified non-institutional (private) residence as the place of occurrence of the external cause ==

== ENCOUNTER → 2024-08-21 | Outpatient (CLI) | payer MEDICARE, MEDICAID | LOC: M SOG 09:55 | PROVIDERS: ATTEND Orthopaedic Surgery | DX: S72.002A Fracture of unspecified part of neck of left femur, initial encounter for closed fracture (principal); Z96.642 Presence of left artificial hip joint; Y92.9 Unspecified place or not applicable; Y93.9 Activity, unspecified; X58.XXXA Exposure to other specified factors, initial encounter ==

== ENCOUNTER 2024-11-21 12:16 | Emergency (ER) | payer MEDICARE, MEDICAID ==
[~2024-11-21] VITALS: Ht 157.5 cm; Wt 63.6 kg
[2024-11-21 12:56] VITALS: BP 119/58
[2024-11-21] MEDS: NITROGLYCERIN 0.4MG SUBL TABLET SL PRN (12:56)
[2024-11-21 12:57] LABS: BASO # 0.0 10^3/uL (0.0-0.2); BASO % 0.3 % (0.0-1.0); EOS # 0.1 10^3/uL (0.0-0.5); EOS % 1.9 % (0.0-3.0); LYMPH # 1.9 10^3/uL (1.5-5.0); LYMPH % 32.6 % (24.0-44.0); MONO # 0.4 10^3/uL (0.0-0.8); MONO % 7.3 % (2.0-8.0); NEUTROPHILS # 3.3 10^3/uL (1.5-8.5); NEUTROPHILS % 57.7 % (36.0-66.0); PLATELET COUNT, AUTOMATED 297 10^3/uL (150-450)
[2024-11-21 13:08] LABS: INR 0.91
[2024-11-21 13:21] LABS: CK-MB VALUE MASS 1.4 NG/ML (<3.6)
[2024-11-21 13:22] LABS: ALT/SGPT 27 U/L (7.0-40); AST/SGOT 20 U/L (<34); CALCIUM LEVEL 9.4 MG/DL (8.3-10.6); CARBON DIOXIDE LEVEL 28 MMOL/L (20-31); CHLORIDE LEVEL 103 MMOL/L (98-107); CREATININE FOR GFR 0.69 MG/DL (0.55-1.30); GLOMERULAR FILTRATION RATE 89.9 (>39); POTASSIUM SERUM 3.8 MMOL/L (3.5-5.1); SODIUM LEVEL 145 MMOL/L (136-145)
[2024-11-21 13:24] LABS: CPK CREATINE PHOSPHOKINASE 71 U/L (34-145); FREE T4 1.01 NG/DL (0.89-1.76); MB/CK RELATIVE INDEX 1.97 (< OR =4)
[2024-11-21] MEDS: NS 500 ML IV ONE (13:38)
[2024-11-21] MEDS ORDERED: SENN-187 PO (13:38)
[2024-11-21] MEDS ORDERED: ASPI81TA26 PO (13:38)
[2024-11-21] MEDS ORDERED: IBUP200C25 PO (13:41)
[2024-11-21] MEDS ORDERED: ALEN70TA82 PO (13:41)
[2024-11-21] MEDS ORDERED: BUPR-766 PO (13:41)
[2024-11-21] MEDS ORDERED: HOME MED LIST COMPLETE! XX SCH (13:45)
[2024-11-21 14:24] LABS: CK-MB VALUE MASS 1.5 NG/ML (<3.6)
[2024-11-21 14:26] LABS: CPK CREATINE PHOSPHOKINASE 55.0 U/L (34-145); MB/CK RELATIVE INDEX 2.72 (< OR =4)
[2024-11-21 14:45] VITALS: BP 140/57; O2SAT 98
[2024-11-21 15:00] VITALS: TEMP 97.6
== END 2024-11-21 15:02 | disposition home or self-care (01) ==
LOC: EDBD 12:16 → M ED 12:16
DX: R07.9 Chest pain, unspecified (principal); R00.1 Bradycardia, unspecified; I45.10 Unspecified right bundle-branch block; K21.9 Gastro-esophageal reflux disease without esophagitis; E78.5 Hyperlipidemia, unspecified; F32.A Depression, unspecified; Z88.6 Allergy status to analgesic agent; Z79.1 Long term (current) use of non-steroidal anti-inflammatories (NSAID); Z79.899 Other long term (current) drug therapy

== ENCOUNTER 2024-12-08 01:33 | Emergency (ER) | payer MEDICARE, MEDICAID ==
[~2024-12-08] VITALS: Ht 157.5 cm; Wt 59.1 kg
[~2024-12-08 01:33] MED LIST changes: +ALEN70TA82 PO; +ASPI81TA26 PO; +BUPR-766 PO; +IBUP200C25 PO; +SENN-187 PO
[2024-12-08 04:34] VITALS: BP 132/60; TEMP 98.9; O2SAT 96
== END 2024-12-08 05:07 | disposition home or self-care (01) ==
LOC: EDBD 01:33 → M ED 01:33
DX: M25.561 Pain in right knee (principal); E78.5 Hyperlipidemia, unspecified; Z85.3 Personal history of malignant neoplasm of breast; Z88.6 Allergy status to analgesic agent; Z79.1 Long term (current) use of non-steroidal anti-inflammatories (NSAID); Z79.899 Other long term (current) drug therapy

== ENCOUNTER → 2024-12-15 | Outpatient (CLI) | payer MEDICARE, MEDICAID ==
[~2024-12-15] MED LIST changes: -PROZ20CA11 PO; +PROZ20CA12 PO
== END ==
LOC: M SOG 08:33
PROVIDERS: ATTEND Orthopaedic Surgery
DX: M25.561 Pain in right knee (principal)

== ENCOUNTER → 2024-12-24 | Outpatient (REF) | payer MEDICARE, MEDICAID ==
[2024-12-24 17:34] LABS: APPEARANCE, URINE HAZY (CLEAR); BACTERIA, URINE AUTO NEGATIVE (NEGATIVE); BILIRUBIN, URINE AUTO NEGATIVE (NEGATIVE); BLOOD, URINE BLOOD NEGATIVE (NEGATIVE); GLUCOSE, URINE (UA) AUTO NEGATIVE (NEGATIVE); KETONE, URINE AUTO NEGATIVE (NEGATIVE); LEUKOCYTE ESTERASE, URINE AUTO NEGATIVE (NEGATIVE); MUCUS, URINE SMALL (NEGATIVE); NITRITE, URINE AUTO NEGATIVE (NEGATIVE); PROTEIN, URINE AUTO NEGATIVE (NEGATIVE); RBC, URINE AUTO 4 /HPF (0-3); SPECIFIC GRAVITY URINE AUTO 1.004 (1.002-1.035); SQUAMOUS EPITHELIAL CELL UR AU 1 /HPF (0-6); UROBILINOGEN, URINE AUTO 0.2 mg/dL (0.0-2.0); WBC, URINE AUTO 3 /HPF (0-3)
== END ==
LOC: M LAB REF 16:57
PROVIDERS: ATTEND Family Medicine
DX: R30.0 Dysuria (principal)

== ENCOUNTER → 2025-01-26 | Outpatient (CLI) | payer MEDICARE, MEDICAID | LOC: M SOG 06:50 | PROVIDERS: ATTEND Orthopaedic Surgery | DX: M25.561 Pain in right knee (principal); M17.11 Unilateral primary osteoarthritis, right knee ==

== ENCOUNTER → 2025-02-26 | Outpatient (CLI) | payer MEDICARE, MEDICAID | LOC: M WHC 09:43 | PROVIDERS: ATTEND Family Medicine | DX: M81.0 Age-related osteoporosis without current pathological fracture (principal) ==

== ENCOUNTER 2025-03-07 03:52 | Emergency (ER) | payer MEDICARE, MEDICAID ==
[~2025-03-07] VITALS: Ht 167.6 cm; Wt 63.5 kg
[2025-03-07 10:41] VITALS: BP 135/63; TEMP 98.5; O2SAT 98
== END 2025-03-07 11:25 | disposition home or self-care (01) ==
LOC: M ED 03:52
DX: S09.90XA Unspecified injury of head, initial encounter (principal); Y92.9 Unspecified place or not applicable; Y93.9 Activity, unspecified; Y99.9 Unspecified external cause status; W06.XXXA Fall from bed, initial encounter; M51.360 Other intervertebral disc degeneration, lumbar region with discogenic back pain only; K21.9 Gastro-esophageal reflux disease without esophagitis; C50.912 Malignant neoplasm of unspecified site of left female breast; F41.9 Anxiety disorder, unspecified; Z79.1 Long term (current) use of non-steroidal anti-inflammatories (NSAID); Z79.899 Other long term (current) drug therapy

== ENCOUNTER 2025-03-09 09:41 | Emergency (ER) | payer MEDICARE, MEDICAID ==
[~2025-03-09] VITALS: Ht 167.6 cm; Wt 50.2 kg
[2025-03-09 11:24] VITALS: BP 138/71; TEMP 97.8; O2SAT 98
== END 2025-03-09 11:25 | disposition home or self-care (01) ==
LOC: M ED 09:41
DX: M17.11 Unilateral primary osteoarthritis, right knee (principal); M25.461 Effusion, right knee; S80.911A Unspecified superficial injury of right knee, initial encounter; Y92.9 Unspecified place or not applicable; Y93.9 Activity, unspecified; Y99.9 Unspecified external cause status; W01.0XXA Fall on same level from slipping, tripping and stumbling without subsequent striking against object, initial encounter; K21.9 Gastro-esophageal reflux disease without esophagitis; C50.919 Malignant neoplasm of unspecified site of unspecified female breast; Z79.1 Long term (current) use of non-steroidal anti-inflammatories (NSAID); Z79.899 Other long term (current) drug therapy

== ENCOUNTER → 2025-04-26 | Outpatient (CLI) | payer MEDICARE, MEDICAID ==
[~2025-04-26] MED LIST changes: -PROZ20CA12 PO; +PROZ20CA25 PO
[2025-04-26 13:32] LABS: ALT/SGPT 17 U/L (7.0-40); AST/SGOT 16 U/L (<34); CALCIUM LEVEL 8.7 MG/DL (8.3-10.6); CARBON DIOXIDE LEVEL 32 MMOL/L (20-31); CHLORIDE LEVEL 109 MMOL/L (98-107); CHOLESTEROL LEVEL 150 MG/DL (<200); CHOLESTEROL RISK RATIO 2.63 (<5); CREATININE FOR GFR 0.67 MG/DL (0.55-1.30); GLOMERULAR FILTRATION RATE > 90.0 (>39); IRON (FE) 30 UG/DL (50-170); LDL CHOLESTEROL 78.3 MG/DL (<100); NON-HDL-C 93.1 MG/DL; PERCENT SATURATION 9.2 % (13.2-45.0); POTASSIUM SERUM 4.3 MMOL/L (3.5-5.1); SODIUM LEVEL 149 MMOL/L (136-145); TRIGLYCERIDES LEVEL 74 MG/DL (<150)
[2025-04-26 13:35] LABS: BASO # 0.0 10^3/uL (0.0-0.2); BASO % 0.4 % (0.0-1.0); EOS # 0.1 10^3/uL (0.0-0.5); EOS % 1.9 % (0.0-3.0); LYMPH # 2.1 10^3/uL (1.5-5.0); LYMPH % 30.4 % (24.0-44.0); MONO # 0.5 10^3/uL (0.0-0.8); MONO % 7.3 % (2.0-8.0); NEUTROPHILS # 4.1 10^3/uL (1.5-8.5); NEUTROPHILS % 59.7 % (36.0-66.0); PLATELET COUNT, AUTOMATED 420 10^3/uL (150-450)
[2025-04-26 13:37] LABS: TOTAL 25(OH) VITAMIN D 48.9 NG/ML (20.0-100.0); VITAMIN B12 LEVEL 493 PG/ML (211-911)
== END ==
LOC: M PLALAB 10:01
PROVIDERS: ATTEND Family Medicine
DX: M85.9 Disorder of bone density and structure, unspecified (principal); D64.9 Anemia, unspecified; E78.5 Hyperlipidemia, unspecified; F03.90 Unspecified dementia, unspecified severity, without behavioral disturbance, psychotic disturbance, mood disturbance, and anxiety